=== PATIENT | female | born 1975 | race Caucasian/White ===

== ENCOUNTER 2019-11-28 15:33 | Outpatient (CLI) | payer MEDICAID, SELFPAY ==
[2019-11-30 12:21] LABS: COVID-19 RT-PCR Result Not Detected
== END 2019-11-28 15:53 ==
PROVIDERS: Visit Provider Nurse Practitioner Family
DX: J06.9 Acute upper respiratory infection, unspecified (principal)
CPT/HCPCS: U0003

== ENCOUNTER 2020-06-20 15:13 | Outpatient (REF) | payer MEDICAID, SELFPAY ==
[2020-06-24 22:44] LABS: SARS-CoV-2 RNA Undetected (Undetected); SARS-CoV-2 Specimen Source Nasal
== END 2020-06-20 15:33 ==
LOC: NCHCN 15:13
PROVIDERS: Visit Provider Family Medicine
DX: Z20.828 Contact with and (suspected) exposure to other viral communicable diseases (principal)
CPT/HCPCS: U0003

== ENCOUNTER 2020-08-13 15:43 | Outpatient (REF) | payer MEDICAID, SELFPAY ==
--- NOTE | 2020-08-13 13:50 | PAPFT_PTH ---
PATIENT: Ashely Bergman LOC: [facility]#:[id number] AGE/SX: 45/F ROOM: RE08/13/[address]: Margo Pina NP : 1975 BED: DIS: 08/13/2020 SPEC #: [id number] RECD: 08/13/20 18:24 STATUS: TRISH REVanesa #: [id number] NIDHI: 08/13/20 13:[address]: Margo Pina NP DEPT: [facility] Cytology RECD BY: Oxana Desouza ENTERED: 08/13/20 18:24 SP TYPE: PAPFT OTHR DR: Diana Payne Tissues: 1 - CX/ENDOCX FOR PAP SMEARS Procedures: PAP THIN PREP/[facility] Screening HPV DNA PROBE Comments: [id number]
== END 2020-08-13 16:03 ==
LOC: LBN 15:43
PROVIDERS: Visit Provider Nurse Practitioner Women's Health
DX: Z12.4 Encounter for screening for malignant neoplasm of cervix (principal); Z11.51 Encounter for screening for human papillomavirus (HPV)
CPT/HCPCS: 88142; 87624

== ENCOUNTER 2021-12-07 17:35 | Emergency (ER) | payer MEDICAID, SELFPAY ==
[2021-12-07 17:38] VITALS: BP 142/105; PULSE 77; RESP 18; TEMP 37.4; O2SAT 100
--- NOTE | 2021-12-07 18:00 | DI.CT_ITS ---
Exam(s) CT CHEST/ABD/PEL W EXAM: CT CHEST/ABD/PEL W CLINICAL HISTORY: thrown horse, T1/T2, R scapula, R ribs, L4 pain. TECHNIQUE: Imaging Protocol: Axial computed tomography images with coronal and sagittal reformatted images were created and reviewed CONTRAST MATERIAL: Intravenous: Omnipaque 350 Contrast volume:100 ml Oral: None COMPARISON: CT CT THORACIC LUMBAR SPINE REC from 12/07/2021 FINDINGS: CHEST: LUNGS: No evidence of lung contusion, infiltrate, pleural effusion, nor pneumothorax. No significant focal findings in the trachea and mainstem bronchi.. MEDIASTINUM: No evidence of mediastinal hematoma. No sternal fracture. No hilar nor significant med iastinal adenopathy.Visualized thyroid unremarkable. CARDIAC: Heart size is normal. There is no pericardial effusion.Thoracic aorta appears unremarkable. No evidence of trauma nor dissection. OSSEOUS: No fractures evident. There is mild subcutaneous bruising over the anterior right lower [address]. There is some mild increased density in the subcutaneous fat at this level. There is no fluid c ollection at this level.. ABDOMEN: Is no ascites and there is no evidence of bowel wall nor mesenteric hematoma. LIVER: No evidence of patent laceration or subcapsular hematoma. Mild steatosis noted. No incidenta l hepatic lesions nor dilatation of intrahepatic ducts. GALLBLADDER/BILIARY: No obvious gallbladder pathology. CBD is not dilated. PANCREAS: No evidence of pancreatic mass nor dilatation of the pancreatic duct. SPLEEN: The spleen is intact. No evidence of laceration. Normal size. Splenic and portal veins are patent. ADRENALS: There are no significant adrenal masses. KIDNEYS: No evidence of renal laceration nor subcapsular hematoma. No significant focal findings in the right kidney. Incidentally noted are nonobstructive calculi in the lower pole of the left kidney measuring up to 6 millimeters. No hydronephrosis. No hydroureter.. No renal cysts nor solid ese s. ABDOMINAL AORTA: Intact. No evidence of trauma. No significant atherosclerotic involvement. No ane urysm. Aortoiliac segments are intact. LYMPH NODES: There is no retroperitoneal nor paraaortic adenopathy. ABDOMINAL WALL: As above GI: There is no evidence of bowel obstruction.No evidence of bowel wall hematoma. PELVIS: LYMPH NODES: There is no intrapelvic nor inguinal adenopathy. GI: No evidence of appendicitis.No evidence of sigmoid diverticulitis. URINARY BLADDER: No calculi nor masses evident REPRODUCTIVE: There is an IUD in satisfactory position in the endometrial canal. There are no abnormal adnexal findings. No free fluid. OSSEOUS: No fractures. No significant osseous lesions IMPRESSION: 1. No significant trauma sequelae in the chest, abdomen, and pelvis. There is mild subcutaneous brui sing over the anterior lower right chest within subcutaneous fat. 2. There are nonobstructive calculi in the lower pole the left kidney. No other renal findings. No hydronephrosis. 3. There is an IUD in the satisfactory position in the uterus. 4. No fractures RADIATION DOSE DELIVERED: Total DLP DATA REPOSITORY: All CT scans at this facility are submitted to the National Radiology Data Registry (NRDR) Dose Index Registry (DIR) with the [employer] (ACR). RADIATION OPTIMIZATION: All CT scans at this facility use at least one of these dose optimization te chniques: automated exposure control; mA and/or kV adjustment per patient size (includes targeted exa ms where dose is matched to clinical indication); or iterative reconstruction.
--- NOTE | 2021-12-07 18:05 | DI.CT_ITS ---
Exam(s) CT HEAD CERVICAL SPINE WO EXAM: CT HEAD CERVICAL SPINE WO CLINICAL HISTORY: thrown horse, T1/T2, R scapula, R ribs, L4 pain. TECHNIQUE: Imaging Protocol: Axial computed tomography images with coronal and sagittal reformatted images were created and reviewed COMPARISON: No exams were available for comparison FINDINGS: BRAIN: There are no skull fractures nor fluid in the visualized paranasal sinuses. However, there is a mild ly expansile peripherally calcified density in the right sphenoid sinus measuring 2 by 1.5 by 1.6 cm, probably chronic retention cyst or other probable benign entity. There is no evidence of intracranial hemorrhage, mass effect, or shift of midline structures. There are no extra-axial fluid collections. The ventricles are not enlarged or shifted and there is no blo od within the ventricular system nor within the basal cisterns. There is an area of relative hypodensity in the left cerebellar hemisphere, not associated with mass upon the 4th ventricle CERVICAL SPINE: There is mild straightening of the normal lordotic curvature of the C-spine. There is no evidence of fracture nor listhesis. No significant prevertebral soft tissue swelling. There is no significant facet joint malalignment. No significant osseous lesions evident. IMPRESSION: Area of abnormal hypodensity in the left cerebellar hemisphere. This should be further studied with MRI. There is a benign-appearing but mildly expansile 2 x 1.5 x 1.6 cm either probable chronic retention c yst versus other benign mildly expansile density within the right side of the sphenoid sinuses. No evidence of cervical spine fracture, malalignment, nor acute compromise of the cervical spinal can al. Some straightening of the cervical spine is most probably related to muscle spasm. RADIATION DOSE DELIVERED: 1,344.43mGy.cm Total DLP DATA REPOSITORY: All CT scans at this facility are submitted to the National Radiology Data Registry (NRDR) Dose Index Registry (DIR) with the [employer] (ACR). RADIATION OPTIMIZATION: All CT scans at this facility use at least one of these dose optimization te chniques: automated exposure control; mA and/or kV adjustment per patient size (includes targeted exa ms where dose is matched to clinical indication); or iterative reconstruction.
--- NOTE | 2021-12-07 18:06 | DI.CT_ITS ---
Exam(s) CT THORACIC LUMBAR SPINE REC EXAM: CT THORACIC LUMBAR SPINE REC CLINICAL HISTORY: thrown horse, T1/T2, R scapula, R ribs, L4 pain TECHNIQUE: Imaging with reconstructions. COMPARISON: No exams were available for comparison FINDINGS: THORACIC SPINAL COLUMN: No evidence of compression fracture nor listhesis. No facet malalignment. N o prominent disc protrusions. LUMBOSACRAL SPINAL COLUMN: No evidence of compression fracture nor listhesis. No facet malalignment. No large disc protrusions evident. Sacral region: No sacral fractures identified. Sacroiliac joints appear unremarkable. No obvious ab normality in the sacral canal. IMPRESSION: No fractures nor listhesis nor facet malalignment within the thoracic and lumbar spinal columns. No evidence of acute compromise of the spinal canal at these levels.
--- NOTE | 2021-12-07 18:10 | ED.GENADUL_ITS ---
Discharge Plan Disposition Patient Disposition: HOME Condition: Good Discharge Details Clinical Impression: Fall from horse, Back pain Primary Care Provider: Diana Payne ED Provider: Juan Antonio Mane Home Meds and New Rx's Prescriptions: New cyclobenzaprine 10 mg tablet 10 mg PO TID Qty: 14 0RF lidocaine [Lidoderm] 1 PATCH patch 1 patch Topical Q24H Qty: 15 0RF Continued Mirena 20 mcg/24 hours (6 yrs) 52 mg intrauterine device 1 device intrauterine ONCE 0RF Rx Instructions: as a single dose Discharge Instructions Instructions: Contusion in Adults (ED), Back Pain (ED) Additional Instructions: At this time your x-rays and CAT scans showed confidence of fracture for your bones. You do have. Notable contusions to your back and your ribs.. Please take Tylenol and Motrin as needed for pain medicine. In the meantime do not lift anything greater than 5 pounds for the next 2 weeks. Avoid any significant vigorous physical activity. Perform easy gentle regular activities at home without any significant bending or lifting. You have been given a prescription for Lidoderm patch. If your insurance does not cover this you can get [id number] Lidoderm patches at 4% which are almost just as effective. Please take the Flexeril as directed but do not take it when driving or operating any vehicles or heavy machinery, swimming, taking long baths, horses edema, or operating firearms. Please use a heating pad as often as possible on your back. Perform daily gentle stretches on your back. Please continue to take the Tylenol and Motrin. You can take 1000 mg of Tylenol every 6 hours and 600 mg of ibuprofen every 6 hours. If you notice any worsening of your symptoms, or any new symptoms such as vomiting, diarrhea, fever, chills, shortness of breath, chest pain, numbness or tingling in your groin or legs, weakness in your legs, loss of control for your bowels or bladder, or fainting , please return immediately to the emergency department for reevaluation. Please follow up with your primary care provider as soon as possible for reassessment and reevaluation. As always, it was a pleasure participating in your medical care today. Additionally please follow-up closely with your primary care provider for reassessment. Please discussed the imaging findings, which they can also review from my chart. If you have any symptoms in the future of dizziness, headache, or imbalance you may require further MRI evaluation. Referrals: Diana Payne MD [Primary Care Provider] - Medical Decision Making This is a 46-year-old female with no significant past medical history who does have an intrauterine contraceptive device who presents today for evaluation of after being thrown off of a horse. Yesterday evening the patient was thrown off her horse, she was wearing her helmet, she did hit her head and did not lose consciousness. She was thrown off backwards, and landed on her back. She has had upper back pain, lower back pain, right rib pain, mild pain with breathing since that event. She denies any vomiting or diarrhea. She denies any numbness tingling or weakness. Patient denies any saddle anesthesia, numbness or tingling in the groin, change in sensation when wiping. Patient denies any bowel or bladder incontinence, leakage, or retention. Patient denies any weakness in the lower extremities, or imbalance. Patient did take Tylenol last night and this did minimally help. Current pain in those locations is made worse with movement. She denies any vision loss, headache or other complaints. No other modifying factors. She is not on any blood thinners. In the past she did have a transverse process fracture in the distant past, and states not feel as bad as that. Physical exam demonstrate tenderness over the right scapula, T1, midline, as well as L3 and L4 midline. Mild right-sided abdominal pain as well. No other abdominal pain. No other Pain. Patient was thrown due to a notable mechanism, I am concerned for pote ntial fracture, the abdominal pain is concerning for potential intra-abdominal process. Will get CT imaging, give Tylenol and Flexeril, monitor closely and reassess. 8:[address] scan results Demonstrate no evidence of acute fracture or other process. Patient feels postoperatively better after having the Flexeril to take and the Tylenol. She was able to sleep. CT head does show impressionable area of attenuation within the left cerebellar left hemisphere though. Likely artifact. Symptoms clinically show no evidence of cerebellar stroke. No current medical indication for emergent MRI However we will recommend follow-up for repeat assessment and further discussion of this disoriented. UA does show fish increase in the right he sees, but it is nitrite negative. notably dirty in the urine with moderate epithelial cells. No clinical evidence of urinary tract infection. No frequency or dysuria. We will send for cultures. Recommend close follow-up with PCP. Discussed red flags which to return. Will give Flexeril. Repeat neurologic exam shows no neurologic deficits. Patient ambulates well. She moves well. I have extensively reviewed the treatment plan and discharge instructions with the patient. I have addressed all patient concerns at this time. The patient was made aware of what symptoms to monitor for that would warrant a return to the emergency department. Discussed the plan with the patient, they demonstrate verbal understanding and agreement with our assessment and plan at this time. The documentation in this chart was dictated using [employer] dictation software. Please excuse any dictation errors. FINDINGS: Brain: There is normal sulcal prominence for a patient of this age. There is a questionable area of low attenuation within the left cerebellar hemisphere. This could be re- evaluated with an MRI examination with and without gadolinium. This could be artifactual in nature. Cerebral ventricles: The ventricular system is midline and symmetrical. It is normally dilated for a patient of this age. Paranasal sinuses: There is a mucous retention cyst within the right sphenoid sinus. Mastoid air cells: Visualized mastoid air cells are well aerated. Bones/joints: Unremarkable. No acute fracture. Soft tissues: Unremarkable. IMPRESSION: 1. Questionable area of low attenuation within the left cerebellar hemisphere. This could be reevaluated with an MRI examination with and without gadolinium if clinically warranted. This might just be artifactual in nature 2. Sinus findings as above. FINDINGS: Bones/joints: There is a reversal of the normal lordosis. The vertebral bodies maintain their height throughout. The pedicles are intact. Discs/Spinal canal/Neural foramina: There are degenerative changes at C1-C2. Thyroid: The thyroid gland is within normal limits. Prevertebral Space: There is no prevertebral soft tissue swelling. Lungs: The visualized lung apices are within normal limits. Soft tissues: Unremarkable. IMPRESSION: Reversal of the normal lordosis. Degenerative changes at C1-C2. Thank you for allowing us to participate in the care of your patient. Dictated and Authenticated by: Seth Love MD 12/07/2021 7:24 PM Eastern Time ([place] & [place]) FINDINGS: Vertebrae: Vertebral bodies maintain normal height. No acute fractures are identified. There is no spondylolisthesis. Thoracic kyphosis is maintained. Discs/Spinal canal/Neural foramina: There is multilevel slight loss of intervertebral disc height and degenerative endplate spurring throughout the midthoracic spine. There is no moderate to large disc herniation and no moderate or severe central canal stenosis. Evaluation of intraspinal soft tissue structures is limited by non-myelographic CT technique. No high-grade neural foraminal stenosis. Soft tissues: No acute or suspicious abnormality in the paravertebral soft tissues. IMPRESSION: No acute fracture or traumatic subluxation in the thoracic spine FINDINGS: Vertebrae: No acute fractures are identified. Lumbar vertebral bodies maintain normal height. Lumbar lordosis is maintained. No spondylolisthesis. Discs/Spinal canal/Neural foramina: There is no moderate to large disc herniation and no moderate or severe central canal stenosis. Evaluation of intraspinal soft tissue structures is limited by nonmyelographic CT technique. No high-grade neural foraminal stenosis. Soft tissues: No acute or suspicious abnormality in the paravertebral soft tissues. IMPRESSION: No acute fracture or traumatic subluxation in the lumbar spine. Thank you for allowing us to participate in the care of your patient. Dictated and Authenticated by: Jennifer Lazo MD 12/07/2021 7:32 PM Eastern Time ([place] & [place]) HPI General Date/Time Provider Initiated Documentation: 12/07/21 17:54 . HPI Narrative: This is a 46-year-old female with no significant past medical history who does have an intrauterine contraceptive device who presents today for evaluation of after being thrown off of a horse. Yesterday evening the patient was thrown off her horse, she was wearing her helmet, she did hit her head and did not lose consciousness. She was thrown off backwards, and landed on her back. She has had upper back pain, lower back pain, right rib pain, mild pain with breathing since that event. She denies any vomiting or diarrhea. She denies any numbness tingling or weakness. Patient denies any saddle anesthesia, numbness or tingling in the groin, change in sensation when wiping. Patient denies any bowel or bladder incontinence, leakage, or retention. Patient denies any weakness in the lower extremities, or imbalance. Patient did take Tylenol last night and this did minimally help. Current pain in those locations is made worse with movement. She denies any vision loss, headache or other complaints. No other modifying factors. She is not on any blood thinners. In the past she did have a transverse process fracture in the distant past, and states not feel as bad as that. Related Data Home Medications Medication Instructions Recorded Confirmed levonorgestrel 20 mcg/24 hours (7 1 device INTRAUTERINE ONCE 08/13/20 12/07/21 yrs) 52 mg intrauterine device (Mirena) cyclobenzaprine 10 mg tablet 10 mg PO TID #14 tab 12/07/21 lidocaine 5 % topical patch 1 patch TOPICAL Q24H #15 ea 12/07/21 (Lidoderm) Previous Rx's Medication Instructions Recorded cyclobenzaprine 10 mg tablet 10 mg PO TID #14 tab 12/07/21 lidocaine 5 % topical patch 1 patch TOPICAL Q24H #15 ea 12/07/21 (Lidoderm) Allergies Allergy/AdvReac Type Severity Reaction Status Date / Time erythromycin base AdvReac Severe vomiting Unverified 12/07/21 17:44 General Stated Complaint: Trauma HERMAN: 3 Review of Systems All systems reviewed & are unremarkable except as noted in HPI and below PFSH All Active Problems (Updated 12/07/21 @ 20:04 by Juan Antonio Mane DO) Fall from horse (Acute) Back pain (Acute) Mixed incontinence (Acute) IUD surveillance (Acute) Family History Father Alzheimer's dementia Dx early 50s Social History Smoking/Tobacco Use Status: Never Smoking risk assessment performed?: Yes Alcohol Intake: current Alcohol Intake frequency: holidays/special occasions only Substance use type: does not use Do you feel safe at home: Yes Do you feel safe in your relationship?: Yes Female Reproductive History Menstrual control method: progestin IUCD History History 2 Para 2 Hx # Term Pregnancies Multiple births Hx # Pregnancies Ectopic pregnancies AB induced Hx Number of Living Children AB spontaneous Exam Narrative Exam Narrative: 1.Const: Well-nourished, Well-developed, appearing stated age 2.Eyes: PERRL, no conjunctival injection, and symmetrical lids. 3.ENT: Atraumatic external nose and ears. Moist MM. Neck: Symmetric, trachea midline, No thyromegaly. There is no evidence of raccoon eyes, davidosn sign, CSF rhinorrhea, mastoid tenderness, cranial crepitus, hemotympanum, exophthalmos, or hyphema. Patient demonstrates intact dentition with no signs of tooth avulsion or fracture, no signs of jaw deformity, no evidence of a LeFort's fracture, with an intact palate, nose and orbital region. There is no evidence of a nasal septal hematoma. No proptosis. Jaw closes symmetrically. Airway is clear. 4.CVS: Regular rate and rhythm, Normal s1 and s2. No murmurs, carotid bruits, rubs, or gallops. Radial pulses 2+ bilaterally and symmetric. Dorsalis pedis pulses 2+ bilaterally and symmetric. 2+ capillary refill. No evidence of distant heart sounds. No extremity edema. No evidence of gross hemorrhage. 5.RESP: Airway clear, no obstructions. No abrasions or ecchymosis. Chest movement symmetric with respirations. No chest wall tenderness on palpation Trachea midline. No crepitus. No step offs. No paradoxical movements. Lungs are clear to auscultation bilaterally. No rales, rhonchi, wheezing or stridor. Breath sound symmetric. No Sucking chest wounds. No clinical evidence of significant chest trauma. 6.GI: Soft, nondistended. Mild tenderness on palpation of the right lower quadrant on the lateral aspect of the abdomen. Bowel tones normoactive. No masses or organomegaly. No ecchymosis or abrasions. No periumbilical ecchymosis or seatbelt sign. No flank or CVA tenderness. No clinical signs of significant trauma. No clinical evidence of significant abdominal trauma. 7.MSK: No gross deformities or discolorations or lesions. Tolerates full range of motion of extremities without tenderness. All compartments of upper and lower extremities are soft with no tenderness. Vascular exam demonstrates brisk capillary refill and intact pulses in all extremities. Pelvic exam demonstrates a stable pelvis, nontender to lateral compression and palpation of symphysis pubis. Patient does have tenderness over the right scapula in the mid aspect. However she also demonstrates good abduction and flexion and extension of the shoulder. No midline tenderness to palpation over the cervical spine. There is midline tenderness over T1, as well as L3 and L4. Normal ROM in flexion, extension, side bend, and rotation. Patient has +5 out of 5 strength in the lower extremities in dorsiflexion and plantarflexion, knee flexion and extension, hip flexion and extension. Normal strength for dorsiflexion and plantar flexion of the great toe bilaterally. There is +2 over 2 dorsalis pedis pulses bilaterally. There is normal sensation to the skin with light touch at the foot, knee, and hip. Normal saddle sensation. Good sensation over the deep sural nerve area bilaterally. Rectal exam demonstrates good rectal tone and good perirectal sensation. Reflexes are +2 over 4 in the patellar reflex bilaterally. +5 out of 5 strength in the medial, ulnar, radial nerve distribution bilaterally in the hands as well as intact light touch sensation to these dermatomes on the hands 8.Skin: Warm, Dry. No rashes or lesions. 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 Sensation grossly intact, no focal neurologic deficits. 10.Psych: (AAO) x3. Appropriate mood and affect Course Vital Signs Vital signs: Vital Signs Temperature 37.4 C 12/07/21 17:38 Pulse 77 12/07/21 17:38 Respiratory Rate 18 12/07/21 17:38 Blood Pressure 142/105 H 12/07/21 17:38 Pulse Oximetry 100 12/07/21 17:38 Temperature 37.4 C 12/07/21 17:38 Temperature Source Temporal Artery Scan 12/07/21 17:38 Pulse 77 12/07/21 17:38 Respiratory Rate 18 12/07/21 17:38 Respiratory Effort Non-Labored 12/07/21 18:01 Respiratory Depth Normal 12/07/21 18:01 Respiratory Pattern Normal 12/07/21 18:01 Blood Pressure 142/105 H 12/07/21 17:38 Pulse Oximetry 100 12/07/21 17:38 Oxygen Delivery Method Room Air 12/07/21 17:38 Oxygen Flow Rate 0 12/07/21 17:38 Pain Level 8 12/07/21 18:01
[2021-12-07] MEDS: Acetaminophen 500 MG TAB 1000 MG PO (18:16)
[2021-12-07] MEDS: Cyclobenzaprine 10 MG TAB PO (18:17)
[2021-12-07] MEDS: Omnipaque 350 MG/ML 100 ML BTL IJ (18:33)
[2021-12-07] MEDS: Normal Saline Flush 10 ML SYR IVP (18:35)
[2021-12-07 18:43] LABS: Bilirubin Negative (Negative); Blood Small (Negative); Clarity Clear (Clear); Glucose Negative (Negative); Ketones Negative (Negative); Leukocyte Esterase Small (Negative); Nitrite Negative (Negative); Specific Gravity >= 1.030 (1.005-1.025); Urobilinogen 0.2 EU/dL (Up TO 0.2); pH 6.5 (5-8)
[2021-12-07] MEDS: Ondansetron 4 MG/2 ML VIAL (18:45)
[2021-12-07] MEDS: MORPHine 4 MG/ML SYR IVP (18:45)
[2021-12-07 18:47] LABS: Bacteria Moderate HPF (Negative); C & S Indicated? No/Sq. Contamination; Casts Negative LPF (Negative); Crystals Few Calcium Oxalate HPF (Negative); Epithelial Cells Moderate HPF (Negative); Mucus Negative (Negative); Other Cells Few Renal (Negative); RBC Negative HPF (0-2)
[2021-12-07 19:00] VITALS: BP 165/98; PULSE 75; RESP 14; O2SAT 94
--- NOTE | 2021-12-07 19:17 | DI.VRAD_ITS ---
PROCEDURE INFORMATION: Exam: CT Chest With Contrast; Diagnostic Exam date and time: 12/07/2021 6:54 PM Age: 46 years old Clinical indication: Injury or trauma; Ruq; Blunt trauma (contusions or hematomas); Injury date: 12/06/21; Injury details: Thrown horse, t1/t2, R scapula, R ribs, l4 pain; Patient HX: Thrown from horse yesterday, t1/t2, R scapula, R ribs, l4 pain TECHNIQUE: Imaging protocol: Diagnostic computed tomography of the chest with contrast. Radiation optimization: All CT scans at this facility use at least one of these dose optimization techniques: automated exposure control; mA and/or kV adjustment per patient size (includes targeted exams where dose is matched to clinical indication); or iterative reconstruction. Contrast material: OMNIPAQUE 350; Contrast volume: 100 ml; Contrast route: INTRAVENOUS (IV); COMPARISON: CR CHEST 2 VIEWS PA,LAT 09/17/2015 9:36 AM FINDINGS: Lungs: The lungs are clear and well aerated. Pleural spaces: No pleural effusion. No pneumothorax. Heart: Heart size is normal. No pericardial effusion. Mediastinal space: No mediastinal hematoma. Lymph nodes: No pathologically enlarged mediastinal, hilar, or axillary lymph nodes. Vasculature: Normal caliber thoracic aorta and main pulmonary artery. Bones/joints: No acute fractures. There are multiple old healed right rib fractures. Thoracic vertebral bodies maintain normal height and alignment. Soft tissues: Subtle patchy infiltration of the subcutaneous fat in the anteroinferior right chest wall, a suspected soft tissue contusion. No hematoma. IMPRESSION: 1. Small superficial soft tissue contusion in the anteroinferior right chest wall. 2. Otherwise, no acute abnormality in the chest. No acute fractures. No pneumothorax. PROCEDURE INFORMATION: Exam: CT Abdomen And Pelvis With Contrast Exam date and time: 12/07/2021 6:54 PM Age: 46 years old Clinical indication: Injury or trauma; Ruq; Blunt trauma (contusions or hematomas); Injury date: 12/06/21; Injury details: Thrown horse, t1/t2, R scapula, R ribs, l4 pain; Patient HX: Thrown from horse yesterday, t1/t2, R scapula, R ribs, l4 pain TECHNIQUE: Imaging protocol: Computed tomography of the abdomen and pelvis with contrast. Radiation optimization: All CT scans at this facility use at least one of these dose optimization techniques: automated exposure control; mA and/or kV adjustment per patient size (includes targeted exams where dose is matched to clinical indication); or iterative reconstruction. Contrast material: OMNIPAQUE 350; Contrast volume: 100 ml; Contrast route: INTRAVENOUS (IV); COMPARISON: CR CHEST 2 VIEWS PA,LAT 09/17/2015 9:36 AM FINDINGS: Lungs: Visualized lung bases are clear. No pleural effusions. Liver: Mildly enlarged and diffusely diminished in attenuation compatible with moderate hepatic steatosis. No acute abnormality. Gallbladder and bile ducts: Unremarkable. No calcified gallstones. No intrahepatic or extrahepatic biliary ductal dilation. Pancreas: Unremarkable. Spleen: Unremarkable. The spleen is normal in size and enhances homogeneously. Adrenal glands: Unremarkable. Kidneys and ureters: Normal and symmetric renal enhancement. No hydronephrosis or hydroureter. 1.2 cm cortical cyst in the upper pole of the right kidney. A nonobstructing calculi in the lower pole of the right kidney, the largest measuring up to 7 mm. Stomach and bowel: The stomach is nondilated. Small and large bowel are normal in caliber. Appendix: A nondilated appendix is identified. Intraperitoneal space: Unremarkable. No ascites, fluid collection, or pneumoperitoneum. Retroperitoneal space: Unremarkable. No retroperitoneal collection or mass. Vasculature: Unremarkable. The abdominal aorta is normal in caliber. Lymph nodes: No pathologically enlarged lymph nodes. Urinary bladder: Unremarkable. Reproductive: No suspicious pelvic masses. There is an intrauterine device in place. Bones/joints: Degenerative changes. Lumbar vertebral bodies maintain normal height and alignment. No acute fractures. Soft tissues: Small faint patchy foci of infiltration in the subcutaneous fat of the abdominal wall in the lateral right upper quadrant, a suspected superficial contusion. No hematoma. Other findings: None. IMPRESSION: 1. Small superficial soft tissue contusion in the lateral right upper abdominal wall. 2. Otherwise, no acute posttraumatic abnormality in the abdomen or pelvis. No evidence of visceral injury. No acute fractures. 3. Incidental/nontraumatic findings are discussed in the body of the report. Dictated and Authenticated by: Jennifer Lazo MD. Ordering:AKIRA Romano MD
--- NOTE | 2021-12-07 19:25 | DI.VRAD_ITS ---
PROCEDURE INFORMATION: Exam: CT Head Without Contrast Exam date and time: 12/07/2021 6:30 PM Age: 46 years old Clinical indication: Injury or trauma; Other: Thrown from horse; Blunt trauma (contusions or hematomas); Consciousness not specified; Injury date: 12/06/21 TECHNIQUE: Imaging protocol: Computed tomography of the head without contrast. Radiation optimization: All CT scans at this facility use at least one of these dose optimization techniques: automated exposure control; mA and/or kV adjustment per patient size (includes targeted exams where dose is matched to clinical indication); or iterative reconstruction. COMPARISON: No relevant prior studies available. FINDINGS: Brain: There is normal sulcal prominence for a patient of this age. There is a questionable area of low attenuation within the left cerebellar hemisphere. This could be re-evaluated with an MRI examination with and without gadolinium. This could be artifactual in nature. Cerebral ventricles: The ventricular system is midline and symmetrical. It is normally dilated for a patient of this age. Paranasal sinuses: There is a mucous retention cyst within the right sphenoid sinus. Mastoid air cells: Visualized mastoid air cells are well aerated. Bones/joints: Unremarkable. No acute fracture. Soft tissues: Unremarkable. IMPRESSION: 1. Questionable area of low attenuation within the left cerebellar hemisphere. This could be re-evaluated with an MRI examination with and without gadolinium if clinically warranted. This might just be artifactual in nature. 2. Sinus findings as above. PROCEDURE INFORMATION: Exam: CT Cervical Spine Without Contrast Exam date and time: 12/07/2021 6:30 PM Age: 46 years old Clinical indication: Injury or trauma; Other: Thrown from horse; Blunt trauma (contusions or hematomas); Consciousness not specified; Injury date: 12/06/21 TECHNIQUE: Imaging protocol: Computed tomography images of the cervical spine without contrast. Radiation optimization: All CT scans at this facility use at least one of these dose optimization techniques: automated exposure control; mA and/or kV adjustment per patient size (includes targeted exams where dose is matched to clinical indication); or iterative reconstruction. COMPARISON: No relevant prior studies available. FINDINGS: Bones/joints: There is a reversal of the normal lordosis. The vertebral bodies maintain their height throughout. The pedicles are intact. Discs/Spinal canal/Neural foramina: There are degenerative changes at C1-C2. Thyroid: The thyroid gland is within normal limits. Prevertebral Space: There is no prevertebral soft tissue swelling. Lungs: The visualized lung apices are within normal limits. Soft tissues: Unremarkable. IMPRESSION: Reversal of the normal lordosis. Degenerative changes at C1-C2. Dictated and Authenticated by: Seth Love MD. Ordering:AKIRA Romano MD
--- NOTE | 2021-12-07 19:32 | DI.VRAD_ITS ---
PROCEDURE INFORMATION: Exam: CT Thoracic Spine Without Contrast Exam date and time: 12/07/2021 6:54 PM Age: 46 years old Clinical indication: Injury or trauma; Other: Thrown from horse; Blunt trauma (contusions or hematomas); Injury date: 12/06/21; Injury details: Thrown horse, t1/t2, R scapula, R ribs, l4 pain; Patient HX: Back pain radiating to mid upper back; Additional info: HX of spinus process FX TECHNIQUE: Imaging protocol: Computed tomography images of the thoracic spine without contrast. Radiation optimization: All CT scans at this facility use at least one of these dose optimization techniques: automated exposure control; mA and/or kV adjustment per patient size (includes targeted exams where dose is matched to clinical indication); or iterative reconstruction. COMPARISON: CT HEAD CERVICAL SPINE WO 12/07/2021 6:30 PM FINDINGS: Vertebrae: Vertebral bodies maintain normal height. No acute fractures are identified. There is no spondylolisthesis. Thoracic kyphosis is maintained. Discs/Spinal canal/Neural foramina: There is multilevel slight loss of intervertebral disc height and degenerative endplate spurring throughout the midthoracic spine. There is no moderate to large disc herniation and no moderate or severe central canal stenosis. Evaluation of intraspinal soft tissue structures is limited by non-myelographic CT technique. No high-grade neural foraminal stenosis. Soft tissues: No acute or suspicious abnormality in the paravertebral soft tissues. IMPRESSION: No acute fracture or traumatic subluxation in the thoracic spine. PROCEDURE INFORMATION: Exam: CT Lumbar Spine Without Contrast Exam date and time: 12/07/2021 6:54 PM Age: 46 years old Clinical indication: Injury or trauma; Other: Thrown from horse; Blunt trauma (contusions or hematomas); Injury date: 12/06/21; Injury details: Thrown horse, t1/t2, R scapula, R ribs, l4 pain; Patient HX: Back pain radiating to mid upper back; Additional info: HX of spinus process FX TECHNIQUE: Imaging protocol: Computed tomography images of the lumbar spine without contrast. Radiation optimization: All CT scans at this facility use at least one of these dose optimization techniques: automated exposure control; mA and/or kV adjustment per patient size (includes targeted exams where dose is matched to clinical indication); or iterative reconstruction. COMPARISON: No relevant prior studies for comparison. FINDINGS: Vertebrae: No acute fractures are identified. Lumbar vertebral bodies maintain normal height. Lumbar lordosis is maintained. No spondylolisthesis. Discs/Spinal canal/Neural foramina: There is no moderate to large disc herniation and no moderate or severe central canal stenosis. Evaluation of intraspinal soft tissue structures is limited by non-myelographic CT technique. No high-grade neural foraminal stenosis. Soft tissues: No acute or suspicious abnormality in the paravertebral soft tissues. IMPRESSION: No acute fracture or traumatic subluxation in the lumbar spine. Dictated and Authenticated by: Jennifer Lazo MD. Ordering:AKIRA Romano MD
[2021-12-07 20:05] VITALS: BP 147/82; PULSE 75; RESP 14; O2SAT 98
== END 2021-12-07 20:19 | disposition home or self-care (01) ==
PROVIDERS: Emergency Provider Student in an Organized Health Care Education/Training Program; PCP Family Medicine
DX: M54.50 Low back pain, unspecified (principal); S20.211A Contusion of right front wall of thorax, initial encounter; S09.8XXA Other specified injuries of head, initial encounter; M54.89 Other dorsalgia; V80.010A Animal-rider injured by fall from or being thrown from horse in noncollision accident, initial encounter
CPT/HCPCS: 74177; 81025; 99285; 70450; 71260; 72125; 81003; 81015; 99284; J2270; J2405; J3490

== ENCOUNTER 2023-02-15 19:36 | Emergency (ER) | payer MEDICAID, SELFPAY ==
[2023-02-15] VITALS (14 sets, daily range): BP systolic 141–152; BP diastolic 90–97; PULSE 63–88; RESP 13–20; TEMP 37; O2SAT 91–100
--- NOTE | 2023-02-15 19:30 | RT.EKG_ITS ---
APPROVED REPORT Exam: Resting ECG Reason for Exam: elevated blood pressure Patient Location: E HR:72 bpm ECG Measurements Heart Rate 72 AXIS MT 174 P 25 QRSd 86 QRS 12 QT 380 T 58 QTc 418 Conclusion Sinus rhythm...normal P axis, V-rate 60- 99
--- NOTE | 2023-02-15 19:56 | ED.GENADUL_ITS ---
Discharge Plan Disposition Patient Disposition: Home Condition: Stable Discharge Details Clinical Impression: Palpitations, Anxiety Primary Care Provider: Jacque Moreno ED Provider: Yonathan Pina Home Meds and New Rx's Prescriptions: New lorazepam 1 mg tablet 1 mg PO TID PRNQty: 12 0RF Continued Mirena 20 mcg/24 hours (6 yrs) 52 mg intrauterine device 1 device intrauterine ONCE Rx Instructions: as a single dose cyclobenzaprine 10 mg tablet 10 mg PO TID Qty: 14 0RF lidocaine [Lidoderm] 1 PATCH patch 1 patch Topical Q24H Qty: 15 0RF Discharge Instructions Instructions: Heart Palpitations (ED), Anxiety (ED) Additional Instructions: your blood work and ekg did not show concerning findings at this time follow up with your primary care provider within 1-2 weeks if you feel more ill, have severe pain or difficulty breathing return to the emergency department Medical Decision Making 48 yo female with no significant pmhx comes in with complaints of feeling her heart fluttering for a month intermittently and also feeling anxious and having trouble sleeping. She denies dyspnea, fevers, chills, denies chest pain states that when she feels the fluttering it's not painful and has no pressure like sensation. She denies any smoking history, no alcohol or drug use. She arrives stable speaking in full sentences and does appear anxious. She has clear lungs, no murmurs, no leg swelling or calf tenderness. I suspect her symptoms are primarily due to anxiety but will proceed with ekg/troponin, cbc, cmp, and give 1mg ativan and reassess. No tachycardia or hypoxia so doubt PE. NO tearing back pain to suggest dissection. Clear lungs and no pleuritic chest pain so doubt ptx and do not feel xray indicated. labs without significant abnormalities, she feels much better and appears less anxious. Given reassuring workup and symptoms for a month do not feel delta troponin indicated. She is stable for d/c, will provide short course of lorazepam to use as needed until she f/u's up with her pcp, return precautions given Differential Diagnosis Differential Diagnosis: anxiety, anemia, electrolyte abnormality ECG Data Attestation: I personally reviewed and interpreted this ECG (s) as follows: Prior ECG tracings: not available for review Interpretation: sinus rate of 72 pr 174 no acute ischemic findings HPI General Mode of arrival: ambulatory . Date/Time Provider Initiated Documentation: 02/15/23 19:36 . Limitations to Documentation: no limitations . Information obtained by: patient . History of Present Illness 48 year old F presents to the emergency department with the chief complaint of palpitations/anxiety, described as moderate, Patient started experiencing this month(s) (1) and it has been intermittent. No relieving factors improve symptom(s), No exacerbating factors reported . Patient did receive the following treatments prior to arrival, none Related Data Home Medications Medication Instructions Recorded Confirmed levonorgestrel 21 mcg/24 hours (8 1 device intrauterine ONCE 08/13/20 12/15/21 yrs) 52 mg intrauterine device (Mirena) cyclobenzaprine 10 mg tablet 10 mg PO TID #14 tabs 12/07/21 12/15/21 lidocaine 5 % topical patch 1 patch topical Q24H #15 ea 12/07/21 12/15/21 (Lidoderm) lorazepam 1 mg tablet 1 mg PO TID PRN #12 tabs 02/15/23 Previous Rx's Medication Instructions Recorded cyclobenzaprine 10 mg tablet 10 mg PO TID #14 tabs 12/07/21 lidocaine 5 % topical patch 1 patch topical Q24H #15 ea 12/07/21 (Lidoderm) lorazepam 1 mg tablet 1 mg PO TID PRN #12 tabs 02/15/23 Allergies Allergy/AdvReac Type Severity Reaction Status Date / Time erythromycin base AdvReac Severe vomiting Verified 12/15/21 14:42 General Stated Complaint: Anxiety HERMAN: 3 Review of Systems All systems reviewed & are unremarkable except as noted in HPI and below Constitutional Constitutional: Denies chills, Denies fever(s) and Denies weakness Cardiovascular Cardiovascular: Denies dyspnea Respiratory Respiratory: Denies cough and Denies dyspnea Gastrointestinal Gastrointestinal: Denies abdominal pain, Denies nausea and Denies vomiting Integumentary/Breasts Skin/Breast: Denies rash Neurologic Neurologic: Denies weakness PFSH All Active Problems (Updated 02/15/23 @ 21:39 by Yonathan Pina MD) Palpitations (Acute) Anxiety (Chronic) Mixed incontinence (Acute) IUD surveillance (Acute) Family History Father Alzheimer's dementia Dx early 50s Social History (Reviewed 12/07/21 @ 18:22 by TANISHA Armendariz Smoking/Tobacco Use Status: Never Smoking risk assessment performed?: Yes Alcohol Intake: current Alcohol Intake frequency: holidays/special occasions only Substance use type: does not use Do you feel safe at home: Yes Do you feel safe in your relationship?: Yes Female Reproductive History Menstrual control method: progestin IUCD History History 2 Para 2 Hx # Term Pregnancies Multiple births Hx # Pregnancies Ectopic pregnancies AB induced Hx Number of Living Children AB spontaneous Exam Const General: no acute distress and anxious Orientation: alert HENMT Head: normal to inspection Ears: external ears normal General nose exam: external nose normal Mouth: moist mucous membranes Eyes General: appearance normal, both eyes and all related structures Neck Neck: normal visual inspection Resp Effort & Inspection: normal respiratory effort and able to speak in complete sentences Auscultation: clear to auscultation bilaterally Cardio Jugular venous pressure: no JVD Rate: regular rate Heart Sounds: no murmurs Skin General skin exam: no rashes or lesions noted Neuro General: patient alert and patient oriented x3 Extrem General: normal to inspection, no calf tenderness and no pedal edema Psych Mental Status: mental status grossly normal Course Vital Signs Vital signs: Vital Signs Temperature 37.0 C 02/15/23 19:39 Pulse 88 02/15/23 19:39 Respiratory Rate 18 02/15/23 19:39 Blood Pressure 152/97 H 02/15/23 19:39 Pulse Oximetry 99 02/15/23 19:39 Temperature 37.0 C 02/15/23 19:39 Temperature Source Oral 02/15/23 19:39 Pulse 88 02/15/23 19:39 Respiratory Rate 18 02/15/23 19:39 Blood Pressure 152/97 H 02/15/23 19:39 Pulse Oximetry 99 02/15/23 19:39 Oxygen Delivery Method Room Air 02/15/23 19:39 Oxygen Flow Rate 0 02/15/23 19:39
[2023-02-15 20:13] LABS: Abs Immature Grans 0.04 10^3/uL (0.0-0.06); Absolute Basophil Count 0.05 10^3/uL (0.0-0.2); Absolute Eosinophil Count 0.24 10^3/uL (0.0-0.7); Absolute Lymphocyte Count 2.78 10^3/uL (1.2-3.4); Absolute Monocyte Count 0.67 10^3/uL (0.1-0.8); Absolute Neutrophil Count 6.83 10^3/uL (1.2-6.7); Basophils % 0.5; Eosinophils % 2.3; HCT 41.1 % (36.0-46.0); HGB 13.9 g/dL (11.2-15.7); Immature Grans % 0.4; Lymphocytes % 26.2; MCH 29.8 pg (27.0-33.0); MCHC 33.8 % (32.0-36.0); MCV 88 fL (80-95); MPV 9.5 fL (8.0-11.0); Monocytes % 6.3; Neutrophils % 64.3; Platelet Count 293 10^3/uL (130-400); RBC 4.67 10^6/uL (3.93-5.22); RDW 12.7 % (11.7-14.6); RDW-SD 40.7 fL; WBC 10.61 10^3/uL (4.4-10.8)
[2023-02-15 20:36] LABS: ALT 29 U/L (14-59); AST 19 U/L (15-37); Alkaline Phosphatase 70 U/L (46-116); BUN 16 mg/dL (7-18); Bilirubin, Total 0.3 mg/dL (0.2-1.0); CREATININE 1.1 mg/dL (0.55-1.02); Chloride 104 mmol/L (98-107); Estimated GFR 62.76 (mL/min/1.73m2); Glucose 96 mg/dL (74-106); Potassium 3.5 mmol/L (3.5-5.1); Sodium 141 mmol/L (136-145); Total Protein 7.6 g/dL (6.4-8.2); Troponin I < 50 ng/L (<or=60)
[2023-02-15 20:44] LABS: Magnesium 1.9 mg/dL (1.8-2.4); TSH (W/Ref FT4) 6.38 uIU/mL (0.36-3.74)
[2023-02-15 21:03] LABS: FREE T4 0.77 ng/dL (0.76-1.46)
[2023-02-15] MEDS: LORazepam 2 MG/ML VIAL 1 MG IVP (21:05)
== END 2023-02-15 21:55 | disposition home or self-care (01) ==
PROVIDERS: Emergency Provider Emergency Medicine; PCP Family Medicine
DX: R00.2 Palpitations (principal); F41.9 Anxiety disorder, unspecified
CPT/HCPCS: 80053; 93005; 99283; 83735; 84439; 84443; 84484; 85025; 93010; J2060

== ENCOUNTER → 2023-05-23 01:01 | Outpatient (CLI) | payer MEDICAID, SELFPAY ==
--- NOTE | 2023-05-23 | DI.MRI_ITS ---
Exam(s) MR BRAIN WO EXAM: MR BRAIN WO CLINICAL HISTORY: BRAIN ANOMALY,Q04.9,HEADACHES, H/O FALL OFF HORSE,F/U CT ,HYPODENSITY TECHNIQUE: Multiplanar multisequence MRI of the brain was performed. COMPARISON: CT CT HEAD CERVICAL SPINE WO from 12/07/2021 FINDINGS: VENTRICLES AND EXTRA AXIAL SPACES: Normal in size and morphology for the patient's age. MIDLINE SHIFT: None. CEREBRAL PARENCHYMA: No focus of restricted diffusion to suggest acute infarct. There is no abnormal signal seen in the left cerebellum. No space-occupying lesion identified. There are few scattered n onspecific white matter foci of hyperintensity on the FLAIR and T2 weighted images. They show no blo oming on the gradient images. HEMORRHAGE: None. BRAINSTEM/CEREBELLUM: Normal. CALVARIUM: Normal. VISUALIZED PARANASAL SINUSES/MASTOIDS:There is a 2 x 1.5 cm mass in the right sphenoid sinus. [place]OW [place]: Normal flow void. PITUITARY GLAND: Unremarkable. OTHER FINDINGS: None. IMPRESSION: 1. Normal MRI appearance of the left cerebellum. No evidence of an infarct or mass in this region. 2. Nonspecific white matter foci seen on the FLAIR and T2 weighted images. There is no evidence of h emorrhage on the gradient images. Postcontrast MRI should be considered for further evaluation. 3. 2 x 1.5 cm right sphenoid mass. This may represent a mucous retention cyst or polyp. Postcontras t MRI may aid in further evaluation. Unexpected findings DATA REPOSITORY:
== END ==
PROVIDERS: PCP Family Medicine; Visit Provider Family Medicine
DX: Q04.9 Congenital malformation of brain, unspecified (principal)
CPT/HCPCS: 70551

== ENCOUNTER 2023-06-24 08:22 | Emergency (ER) | payer MEDICAID, SELFPAY ==
[2023-06-24 08:24] VITALS: BP 166/79; PULSE 73; RESP 18; TEMP 36.3; O2SAT 100
--- NOTE | 2023-06-24 08:43 | ED.GENADUL_ITS ---
Discharge Plan Disposition Patient Disposition: Home Condition: Improving Discharge Details Chief Complaint: HeadInjury Clinical Impression: Hematoma, Head injury Primary Care Provider: Jacque Moreno ED Provider: Sky Zhu Home Meds and New Rx's Prescriptions: No Action Mirena 20 mcg/24 hours (6 yrs) 52 mg intrauterine device 1 device intrauterine ONCE Rx Instructions: as a single dose lorazepam 1 mg tablet 1 mg PO TID PRNQty: 12 0RF guanfacine 1 mg tablet 1 mg PO HS Patient Comments: TAKE ONE TABLET BY MOUTH AT BEDTIME citalopram 20 mg tablet 20 mg PO DAILY Patient Comments: TAKE ONE TABLET BY MOUTH EVERY DAY Discharge Instructions Instructions: Head Injury (ED), Hematoma (ED) Additional Instructions: Please continue with ice, ibuprofen and/or acetaminophen at home for pain and swelling. Please return to the emergency department for any worsening symptoms Medical Decision Making 48-year-old female presents after being kicked in the head by a horse, no loss of consciousness, no vomiting however slight headache and mild nausea, 6 centimeter hematoma with superficial abrasion to lateral aspect of right frontal scalp, TMs clear bilaterally tongue secretions no malocclusion no neck pain no midline spinal tenderness or back discomfort, patient is neurologically intact GCS of 15, airway breathing and circulation intact, 5-5 strength upper and lower extremities, normal speech no ataxia; given mechanism of injury will obtain CT head to assess for skull fracture versus intraparenchymal bleed however likely simple hematoma with early mild concussion. Trial of analgesia anti- inflammatory and antiemetics. Close reassessment disposition pending results and reassessment 9: 18 patient resting comfortably no acute distress. Hematoma is reducing with ice and rest. No evidence of skull fracture or intraparenchymal bleed. Patient is neurologically intact no vomiting. Home care instructions and return precautions given HPI General Date/Time Provider Initiated Documentation: 06/24/23 08:37 . HPI Narrative: 48-year-old female was kicked in the head by a horse, struck right frontal scalp, no loss of consciousness, has developed large swelling mild headache and nausea. Denies neck pain maxillofacial pain chest or abdominal trauma. No trouble breathing. No vomiting. Related Data Home Medications Medication Instructions Recorded Confirmed levonorgestrel 21 mcg/24 hours (8 1 device intrauterine ONCE 01/06/21 11/17/23 yrs) 52 mg intrauterine device (Mirena) lorazepam 1 mg tablet 1 mg PO TID PRN #12 tabs 02/15/23 06/24/23 citalopram 20 mg tablet 20 mg PO DAILY 06/24/23 06/24/23 guanfacine 1 mg tablet 1 mg PO HS 06/24/23 06/24/23 Previous Rx's Medication Instructions Recorded lorazepam 1 mg tablet 1 mg PO TID PRN #12 tabs 02/15/23 Allergies Allergy/AdvReac Type Severity Reaction Status Date / Time erythromycin base AdvReac Severe vomiting Verified 06/24/23 08:26 General Stated Complaint: HeadInjury HERMAN: 3 Review of Systems Narrative: Review of Systems Constitutional: negative Eyes: negative ENT: Head injury Cardiovascular: negative Respiratory: negative Gastrointestinal: negative : negative Musculoskeletal: negative Skin: negative Neurologic: negative Psych: negative PFSH All Active Problems (Updated 06/24/23 @ 09:19 by Sky Zhu MD) Head injury (Acute) Hematoma (Acute) Mixed incontinence (Acute) IUD surveillance (Acute) Family History Father Alzheimer's dementia Dx early 50s Social History Smoking/Tobacco Use Status: Never Smoking risk assessment performed?: Yes Alcohol Intake: current Alcohol Intake frequency: holidays/special occasions only Substance use type: does not use Do you feel safe at home: Yes Do you feel safe in your relationship?: Yes Female Reproductive History Menstrual control method: progestin IUCD History History 2 Para 2 Hx # Term Pregnancies Multiple births Hx # Pregnancies Ectopic pregnancies AB induced Hx Number of Living Children AB spontaneous Exam Narrative Exam Narrative: Physical Examination General: alert, awake, cooperative, resting comfortably, no acute distress HEENT: normocephalic, 6 cm hematoma lateral aspect of right frontal scalp small superficial abrasion hemostatic no foreign body; PERRL, EOM intact, conjunctiva normal; no nasal discharge; moist mucous membranes, oral and pharyngeal mucosa normal, tolerating secretions; TMs clear bilaterally Neck: supple, trachea midline; full ROM Chest: normal to inspection Respiratory: normal respiratory effort, speaking in full sentences, clear to auscultation, no wheezing, rales or rhonchi Cardiac: regular rate, regular rhythm, S1S2 intact, no murmurs rubs or gallops GI: abdomen soft, non-tender, non-distended; no palpable mass or hepatosplenomegaly Back: No midline spinal tenderness step-off or deformity Skin: no lesions, rashes or trauma appreciated Neuro: AAOx3, normal speech, moving all extremities; cranial nerves II through XII intact out of 5 strength upper and lower extremities, ambulatory without assistance no ataxia Extremities: No signs of trauma Psych: Appropriate mood and affect Course Vital Signs Vital signs: Vital Signs Temperature 36.3 C L 06/24/23 08:24 Pulse 73 06/24/23 08:24 Respiratory Rate 18 06/24/23 08:24 Blood Pressure 166/79 H 06/24/23 08:24 Pulse Oximetry 100 06/24/23 08:24 Temperature 36.3 C L 06/24/23 08:24 Temperature Source Skin 06/24/23 08:24 Pulse 73 06/24/23 08:24 Respiratory Rate 18 06/24/23 08:24 Respiratory Effort Normal 06/24/23 08:30 Respiratory Depth Normal 06/24/23 08:30 Respiratory Pattern Normal 06/24/23 08:30 Blood Pressure 166/79 H 06/24/23 08:24 Blood Pressure Position Sitting 06/24/23 08:24 Pulse Oximetry 100 06/24/23 08:24 Oxygen Delivery Method Room Air 06/24/23 08:24 Oxygen Flow Rate 0 06/24/23 08:24 Pain Level 5 06/24/23 08:24
--- NOTE | 2023-06-24 08:52 | DI.CT_ITS ---
Exam(s) CT HEAD WO EXAM: CT HEAD WO CLINICAL HISTORY: kicked in head by horse, r ebony. TECHNIQUE: Imaging Protocol: Axial computed tomography images with coronal and sagittal reformatted images were created and reviewed COMPARISON: CT CT HEAD CERVICAL SPINE WO from 12/07/2021 FINDINGS: There is prominent subcutaneous hematoma over the lateral right frontal region but no evidence of sub jacent facial nor skull fracture. There are no fluid levels in the paranasal sinuses but there is again noted the previously described expansile peripherally calcified density in the right sphenoid sinus measuring 2.1 by 1.6 by 1.6 cm, unchanged from previous and most probably a chronic retention cyst versus other benign slowly expandi ng process. There is no evidence of intracranial hemorrhage, mass effect, or shift of midline structures. There are no extra-axial fluid collections. The ventricles are not enlarged or shifted and there is no blo od within the ventricular system nor within the basal cisterns. IMPRESSION: No acute intracranial findings on this noninfused CT scan of the brain. Right para orbital scalp hematoma. No fracture. RADIATION DOSE DELIVERED: Total DLP DATA REPOSITORY: All CT scans at this facility are submitted to the National Radiology Data Registry (NRDR) Dose Index Registry (DIR) with the [employer] (ACR). RADIATION OPTIMIZATION: All CT scans at this facility use at least one of these dose optimization te chniques: automated exposure control; mA and/or kV adjustment per patient size (includes targeted exa ms where dose is matched to clinical indication); or iterative reconstruction.
[2023-06-24] MEDS: Acetaminophen 325 MG TAB 650 MG PO (08:54)
[2023-06-24] MEDS: Ondansetron O.D.T. 4 MG TABEF SL (08:54)
[2023-06-24 09:42] VITALS: BP 112/92; PULSE 54; RESP 16; O2SAT 100
== END 2023-06-24 09:52 | disposition home or self-care (01) ==
PROVIDERS: Emergency Provider Emergency Medicine; PCP Family Medicine
DX: S00.03XA Contusion of scalp, initial encounter (principal); S09.8XXA Other specified injuries of head, initial encounter; W55.12XA Struck by horse, initial encounter; Y93.K9 Activity, other involving animal care; Y92.89 Other specified places as the place of occurrence of the external cause
CPT/HCPCS: 99284; 70450; 99283

== ENCOUNTER 2024-08-07 15:27 | Outpatient (CLI) | payer MEDICAID, SELFPAY ==
--- NOTE | 2024-08-07 15:11 | DI.RAD_ITS ---
Exam(s) XR KNEE LT 4V AP,LAT,YOBANY,PAT EXAM: XR KNEE LT 4V AP,LAT,YOBANY,PAT CLINICAL HISTORY: PAIN LT KNEE JOINT, M25.562, KICKED BY HORSE LT KNEE MEDIAL ASPECT ON 08/04. TECHNIQUE: 2D digital imaging was performed. COMPARISON: No exams were available for comparison FINDINGS: Four views No evidence of acute fracture but there does appear to be a small joint effusion which may signify in ternal derangement. There is minimal narrowing of the medial compartment. No prominent degenerative changes. Bone density normal. No osseous lesions. On the merchant's view there is no significant narrowing of the retropatellar cartilage and no patellar offset. IMPRESSION: No acute osseous abnormalities in the left knee. However, there does appear to be a joint effusion w hich may signify internal derangement. Appropriate follow-up is recommended. DATA REPOSITORY: RADIATION DOSE DELIVERED:
--- OUTSIDE RECORDS SUMMARY | 2024-08-07 15:33 | XMS_ITS | Referral Summary ---
Author Organization [facility] Address [address] [place] [address] Care Team Providers Care Nurse Healthcare Manager Name Role Phone Katie Ratliff RUG RECEIVING CLERK Primary Care Provider [phone] Social History Tobacco Use Types Packs/Day Years Used Date Smoking Tobacco: Never Assessed Comments Unknown Sex and Gender Information Value Date Recorded Sex Assigned at Not on file Legal Sex Female 18:26 EST Gender Identity Not on file Sexual Orientation Not on file Plan of Treatment Not on file Care Teams Nurse Healthcare Manager Relationship Specialty Start Date End Date Katie Ratliff NP [address] [place] [id number] PCP - General 06/18/15
--- OUTSIDE RECORDS SUMMARY | 2024-08-07 15:33 | XMS_ITS | Clinical Summary ---
Author Organization [facility] Address [address] [place] [id number] Care Team Providers Care Computer Aide Name Role Phone Katie Ratliff NP Primary Care Provider [phone] Social History Tobacco Use Types Packs/Day Years Used Date Smoking Tobacco: Never Assessed Comments Unknown Sex and Gender Information Value Date Recorded Sex Assigned at Not on file Legal Sex Female 18:26 EST Gender Identity Not on file Sexual Orientation Not on file Plan of Treatment Health Maintenance Due Date Last Done Comments Hepatitis C Screen 1975 Hepatitis B Vaccine (1 of 3 - 19+ 3-dose series) 01/20 COVID-19 Vaccine ( season) 2024 Care Teams Computer Aide Relationship Specialty Start Date End Date Katie Ratliff NP [address] [place] [id number] PCP - General 06/18/15
--- OUTSIDE RECORDS SUMMARY | 2024-08-07 15:34 | XMS_ITS | Encounter Summary ---
Author Organization [facility] Address [address] [place] [address] Care Team Providers Care Salesforce Consultant Name Role Phone Unavailable Primary Care Provider Unavailabl e Encounter Details Date Type Department Care Team (Latest Contact Info) Description 10/07/2008 18:21 EST Hospital Encounter [facility] - Other [address] [place] [address] Germaine Rivas MD [address] [place] [address] Discharge Disposition: Home or Self Care Social History Tobacco Use Types Packs/Day Years Used Date Smoking Tobacco: Never Assessed Comments Unknown Sex and Gender Information Value Date Recorded Sex Assigned at Not on file Legal Sex Female 18:26 EST Gender Identity Not on file Sexual Orientation Not on file documented as of this encounter Discharge Disposition Disposition Code Departure Means Destination Home or Self Care documented in this encounter Plan of Treatment Not on file documented as of this encounter Procedures Procedure Name Priority Date/Time Associated Diagnosis Comments SURGICAL PATHOLOGY Routine 10/08/2008 0:00 EST documented in this encounter Results * SURGICAL PATHOLOGY (10/08/2008 0:00 EST) Pathology Report: SURGICAL PATHOLOGY REPORT ? Reports generated via electronic interface contain original data; ? however they are lacking the format of the original report. ? Caution should be taken when reading/interpreti ng unformatted reports. ? Name: ? DANIEL BERGMAN M ? Accession #: ? [id number] ? : ? 1975 (Age: 33) ??F ? Collect Date: ? 10/08/2008 ? Location: ? [facility] ? Receive Date: ? 10/08/2008 ? Provider: GERMAINE RIVAS MD ? Copy to: MEDINA L ZAYAS MACHINIST MECHANIC ? Final Pathologic Diagnosis: ? Skin of inguinal area, right, biopsy: ? - Fibroepithelial polyp (soft fibroma). ? Microscopic Description: ? Sections are of a pedunculated portion of skin. ??The epidermis is ? relatively unremarkable. ??Within the dermis, there is loose fibrous tissue with stellate fibroblasts. ??There are lobules of mature adipose tissue. ??( ? Kenny)/tmg ? Document reviewed and electronically signed by: ? Kiarra Cox MD ? Report ??Date: 10/10/2008 13:35 ? By the signature above, the attending physician certifies that he/she has ? personally conducted a gross and/or microscopic examination of the described ? specimens and rendered or confirmed the above diagnosis. ? Specimen(s) Received: ? Skin tag R inguinal area ? Clinical History: ? Skin tag R inguinal area ? Gross Description: ? Received in formalin labelled Dargie and R inguinal area is a shave ? biopsy of a sifuentes smooth to wrinkled nodule measuring 1.2 x 1.0 x 0.6 cm. ??The ? margin is inked black. ??The specimen is trisected and entirely submitted in one cassette. ??(Espinoza Pelayo)/ge ? End of Report ? [facility] 10/08/2008 10/08/2008 15: 49 EST us Germaine Rivas MD PATHOLOGY ORDERABLES Final Resul t [facility] [address] [place] [address] documented in this encounter Visit Diagnoses Not on filedocumented in this encounter
--- OUTSIDE RECORDS SUMMARY | 2024-08-07 15:34 | XMS_ITS | Encounter Summary ---
Author Organization [facility] Address [address] [place] [address] Care Team Providers Care Farm Manager Name Role Phone Unavailable Primary Care Provider Unavailabl e Encounter Details Date Type Department Care Team (Late st Contact Info) Description 12/19/2014 Results Only [facility] [phone] Tatum Colunga, [address] [place] [address] Social History Tobacco Use Types Packs/Day Years Used Date Smoking Tobacco: Never Assessed Comments Unknown Sex and Gender Information Value Date Recorded Sex Assigned at Not on file Legal Sex Female 18:26 EST Gender Identity Not on file Sexual Orientation Not on file documented as of this encounter Plan of Treatment Not on file documented as of this encounter Procedures Procedure Name Priority Date/Time Associated Diagnosis Comments PAP TEST- RESULT ONLY Routine 12/19/2014 0:00 EDT documented in this encounter Results * PAP TEST- RESULT ONLY (12/19/2014 0:00 EDT) Pathology Report: CYTOPATHOLOGY REPORT Reports generated via electronic interface contain original data; however they are lacking the format of the original report. Caution should be taken when reading/interpreti ng unformatted reports. Name: ? DANIEL BERGMAN ? Accession #: ? [id number] ? : ? 1975 (Age: 39) ??F ?Collect Date: ? 12/19/2014 ? Location: ? [facility] ? Receive Date: ? 12/20/2014 ? Provider: TATUM COLUNGA CO CHAIRMAN Copy to: MEDINA ZAYAS MALT HOUSE OPERATOR ? Final Report SPECIMEN ADEQUACY ? Satisfactory for Evaluation - transformation zone component present - scant squamous epithelial component secondary to excessive blood GENERAL CATEGORIZATION ? Negative for Intraepithelial Lesion or Malignancy ?? Last Menstrual Period: 12/06/2014 Hormonal/Contracep tive status: Intrauterine device: Paraguard Specimen/Source: ??Pap Test, Cervix/Endocervix, ThinPrep Imaging System with manual evaluation Document reviewed and electronically signed by: ? Pau Ndiaye, NEWTON(ASCP) ? Report ??Date: 12/31/2014 09:58 HPV with Pap Test ? Date Ordered: ? 12/31/2014 ? Status: ?? Signed Out ?Date Complete: ? 01/02/2015 ? By: ??System Interface ? Date Reported: ? 01/02/2015 ? Interpretation RESULT: Negative for HPV. No E6 or E7 mRNA is detected from HPV types 16,18,31,33,35, 39,45,51,52,56,58, 59,66, and 68 by contract design agent mediated amplification. Comments Document reviewed and electronically signed by: ? System Interface ? Report date: 01/02/2015 By the signature above, the attending physician certifies that he/she has personally conducted a gross and/or microscopic examination of the described specimens and rendered or confirmed the above diagnosis. End of Report [facility] 12/19/2014 12/20/2014 us Tatum Colunga CO CHAIRMAN PATHOLOGY ORDERABLES Final R esult [facility] [address] [place] [address] documented in this encounter Visit Diagnoses Not on filedocumented in this encounter
--- OUTSIDE RECORDS SUMMARY | 2024-08-07 15:34 | XMS_ITS | Encounter Summary ---
Author Organization [facility] Address [address] [place] [address] Care Team Providers Care Sharepoint Specialist Name Role Phone Unavailable Primary Care Provider Unavailabl e Encounter Details Date Type Department Care Team (Late st Contact Info) Description 10/04/2003 Results Only [facility] - [facility] [address] [place] [address] Tatum Colunga, [facility] [address] [place] [address] [place] [address] Social History Tobacco Use Types [...] Procedure Name Priority Date/Time Associated Diagnosis Comments CYTOPATHOLOGY Routine 10/04/2003 0:00 EST documented in this encounter Results * CYTOPATHOLOGY (10/04/2003 0:00 EST) Pathology Report: CYTOPATHOLOGY REPORT Reports generated via electronic interface contain original data; however they are lacking the format of the original report. Caution should be taken when reading/interpreti ng unformatted reports. Name: ? DANIEL BERGMAN ? Accession #: ? [id number] : ? 1975 (Age: 28) ??F ?Collect Date: ? 10/04/2003 Location: ? [facility] ? Receive Date: ? 10/07/2003 Provider: ?TATUM COLUNGA TRANSPORTATION DESIGN ENGINEER Copy to: ? Specimen/Source: ?ThinPrep Pap Test, Cervix/Endocervix Last Menstrual Period: ? 09/27/03 Previous Gynecologic Pathology: ? ASC-US: 10/06 HPV: + 07/09 Treatment History: ? Colposcopy: 09/09 normal Other: ? Additional clinical information: 08/17/01 & 05/09 paps neg. HPVA - HPV testing requested if ASC-US on the current ThinPrep Pap test. ? SPECIMEN ADEQUACY ? Satisfactory for Evaluation - transformation zone component present GENERAL CATEGORIZATION ? Negative for Intraepithelial Lesion or Malignancy ? Document reviewed and electronically signed by: ? ROMAN Patino(ASCP) ? Report Date: ??10/10/2003 09:44 End of Report [facility] 10/04/2003 10/07/2003 us Tatum Colunga TRANSPORTATION DESIGN ENGINEER PATHOLOGY ORDERABLES Final R esult [facility] [address] [place] [address] documented in this encounter Visit Diagnoses Not on filedocumented in this encounter
--- OUTSIDE RECORDS SUMMARY | 2024-08-07 15:34 | XMS_ITS | Encounter Summary ---
Author Organization [facility] Address [address] [place] [address] Care Team Providers Care Porcelain Enamel Sprayer Name Role Phone Unavailable Primary Care Provider Unavailabl e Encounter Details Date Type Department Care Team (Late st Contact Info) Description 08/17/2001 8:55 EST Hospital Encounter [facility] - Other [address] [place] [address] [address] [place], [place] [id number] Unknown, Provider, Social History Tobacco Use Types Packs/Day Years [...] Procedure Name Priority Date/Time Associated Diagnosis Comments HPV DETECTION, HIGH RISK TYPES Routine 08/17/2001 15:30 EST CYTOPATHOLOGY Routine 08/17/2001 0:00 EST documented in this encounter Results * HUMAN PAPILLOMA VIRUS DNA TEST (08/17/2001 15:30 EST) Specimen Description Cervix, ThinPrep vial [facility] Result Positive for one or more of HPV types 16,18,31,33,35 ,39,45,51,52,5 6,58,59, or 68. These high/intermedi ate risk HPV types are associated with dysplasia and some cervical cancers. [facility] Report Status Final [id number] [facility] 08/17/2001 15:3 0 EST 08/23/2001 8:29 EST Neil Morales CNJesus MICROBIOLOGY - GENERAL ORDERABLE S Final Result [facility] [address] [place] [address] * CYTOPATHOLOGY (08/17/2001 0:00 EST) Pathology Report: CYTOPATHOLOGY REPORT Reports generated via electronic interface contain original data; however they are lacking the format of the original report. Caution should be taken when reading/interpreti ng unformatted reports. Name: ? DANIEL BERGMAN ? Accession #: ? [id number] : ? 1975 (Age: 26) ??F ?Collect Date: ? 08/17/2001 Location: ? [facility] ? Receive Date: ? 08/21/2001 Provider: ?NEIL MORALES CNM Copy to: ? Specimen/Source: ?ThinPrep Pap Test, Cervix/Endocervix Last Menstrual Period: ? 09/05/00 Menstrual/Pregnanc y Status: ? Post Previous Gynecologic Pathology: ? HPV ASC-US Treatment History: ? Colposcopy Other: ? HPVDX - HPV testing requested regardless of diagnosis on current ThinPrep Pap test. ? SPECIMEN ADEQUACY ? Satisfactory for Evaluation - transformation zone component present GENERAL CATEGORIZATION ? Negative for Intraepithelial Lesion or Malignancy ? Document reviewed and electronically signed by: ? NEWTON Balderrama(ASCP) ? Report Date: ??08/22/2001 16:24 End of Report [facility] 08/17/2001 08/21/2001 us Neil Morales CNM PATHOLOGY ORDERABLES Final Resul t [facility] [address] [place] [address] documented in this encounter Visit Diagnoses Not on filedocumented in this encounter
--- OUTSIDE RECORDS SUMMARY | 2024-08-07 15:34 | XMS_ITS | Encounter Summary ---
Author Organization [facility] Address [address] [place] [address] Care Team Providers Care Manager Agriculture Name Role Phone GaudencioKatie PROPULSION SYSTEMS ENGINEER Primary Care Provider [phone] Encounter Details Date Type Department Care Team (Late st Contact Info) Description 08/14/2020 Lab Requisition [facility] Pathology & Laboratory Medicine - [address] [address] Margo Pina, MEAL COOKER [address] [place] [address] Encounter for other general examination Social History Tobacco Use Types Packs/Day Years [...] Name Priority Date/Time Associated Diagnosis Comments PAP TEST Today 08/13/2020 13:50 EST Encounter for other general examination HPV DNA DETECTION WITH GENOTYPING, PCR Today 08/13/2020 13:50 EST Encounter for other general examination documented in this encounter Results * HUMAN PAPILLOMAVIRUS (HPV) DETECTION-HIGH RISK TYPES (08/13/2020 13:50 EST) HPV other High Risk types, PCR Negative Negative 08/26/2020 14:06 EST [facility] Comment:No E6 or E7 mRNA is detected from HPV types 16,18,31,33,35,39,45,51,52,56,58,59,66, and 68 by electronic sales and service technician mediated amplification. Papanicolaou smear specimen (specimen) CERVIX UTERI STRUCTURE / Unknown 08/13/2020 13:50 EST 08/22/2020 12:02 EST us Margo A Silvana MEAL COOKER MICROBIOLOGY - GENERAL OR DERABLES Final Result [facility] [address] [place] [address] * PAP TEST (08/13/2020 13:50 EST) Specimens A. Cervix and/or Endocervix , ThinPrep Imaging System with Manual Evaluation 08/26/2020 14:06 [facility] Specimen Adequacy Satisfactory for Evaluation - transformation zone component present 08/26/2020 14:06 [facility] General Categorization Negative for intraepithelial lesion or malignancy 08/26/2020 14:06 [facility] Descriptive Diagnosis Reactive cellular changes associated with inflammation present (includes repair). 08/26/2020 14:06 [facility] Attestation By the signature below, the attending physician certifies that they have personally conducted a gross and/or microscopic examination of the described specimens and rendered or confirmed the above diagnosis. 08/26/2020 14:06 [facility] at 1406 Clinical History See below 08/26/19 14:06 [facility] HPV The result for the Human Papillomavirus (HPV) Detection-High Risk Types is Negative. No E6 or E7 mRNA is detected from HPV types 16,18,31,33,35,39 ,45,51,52,56,58,5 9,66, and 68 by electronic sales and service technician mediated amplification.Ivonne ting was performed on specimen [id number] and was resulted on 08/26/2020 1401 EST by MAXI, LAB INSTRUMENT RESULTS IN 08/26/2020 14:06 [facility] Performing Lab [facility] 08/26/2020 14:06 [facility] Scanned Images 08/26/2020 14:06 EST [facility] Papanicolaou smear specimen (specimen) CERVIX UTERI STRUCTURE / Unknown 08/13/2020 13:50 EST 08/14/2020 11:47 EST us Margo Pina APRN PATHOLOGY ORDERABLES Stacy tolbert Result [facility] [address] [place] [address] documented in this encounter Visit Diagnoses Diagnosis Encounter for other general examination documented in this encounter Care Teams Manager Agriculture Relationship Specialty Start Date End Date Katie Ratliff NP [address] [place] [address] PCP - General 06/18/15 documented as of this encounter
--- OUTSIDE RECORDS SUMMARY | 2024-08-07 15:34 | XMS_ITS | Encounter Summary ---
Author Organization [facility] Address [address] [place] [address] Care Team Providers Care Community Liaison Officer Name Role Phone Unavailable Primary Care Provider Unavailabl e Encounter Details Date Type Department Care Team (Late st Contact Info) Description 06/05/2002 Results Only [facility] - Maple conversion [address] [place] [address] Tatum Colunga, [facility] [address] [place] [address] [place] [address] Social History Tobacco Use Types [...] Priority Date/Time Associated Diagnosis Comments CYTOPATHOLOGY Routine 06/05/2002 0:00 EST documented in this encounter Results * CYTOPATHOLOGY (06/05/2002 0:00 EST) Pathology Report: CYTOPATHOLOGY REPORT Reports generated via electronic interface contain original data; however they are lacking the format of the original report. Caution should be taken when reading/interpreti ng unformatted reports. Name: ? DANIEL BERGMAN ? Accession #: ? [id number] : ? 1975 (Age: 27) ??F ?Collect Date: ? 06/05/2002 Location: ? [facility] ? Receive Date: ? 06/07/2002 Provider: ?TATUM COLUNGA WATERPROOFER HELPER Copy to: ? Specimen/Source: ?ThinPrep Pap Test, Cervix/Endocervix Last Menstrual Period: ? Hormonal/Contracep tive Status: ? Depo-Provera Previous Gynecologic Pathology: ? ASC-US HPV Treatment History: ? Colposcopy: Normal, Pap of 08/17/01 Neg. ? SPECIMEN ADEQUACY ? Satisfactory for Evaluation - transformation zone component present GENERAL CATEGORIZATION ? Negative for Intraepithelial Lesion or Malignancy ? Document reviewed and electronically signed by: ? Fauzia Shelton, CT(ASCP)(IAC) ? Report Date: ??06/12/2002 10:41 End of Report [facility] 06/05/2002 06/07/2002 Tatum Colunga WATERPROOFER HELPER PATHOLOGY ORDERABLES Final R esult [facility] [address] [place] [address] documented in this encounter Visit Diagnoses Not on filedocumented in this encounter
--- OUTSIDE RECORDS SUMMARY | 2024-08-07 15:34 | XMS_ITS | Encounter Summary ---
Author Organization [facility] Address [address] [place] [address] Care Team Providers Care Manager Applied Name Role Phone Unavailable Primary Care Provider Unavailabl e Encounter Details Date Type Department Care Team (Late st Contact Info) Description 09/09/2008 Before PRISM Converted Visit (Maple) [facility] - Maple conversion [address] [place] [address] [facility] [address] [place] [address] [place] [address] Social History Tobacco Use Types [...] Comments HPV DETECTION, HIGH RISK TYPES Routine 09/09/2008 11:30 EST CYTOPATHOLOGY Routine 09/09/2008 0:00 EST documented in this encounter Results * HUMAN PAPILLOMA VIRUS DNA TEST (09/09/2008 11:30 EST) Specimen Description Cervix, ThinPrep vial [facility] Result Negative for HPV types 16, 18, 31, 33, 35, 39, 45, 51, 52, 56, 58, 59, and 68. [facility] Report Status Final 09/24/2008 [facility] 09/09/2008 11:3 0 EST 09/18/2008 10:50 EST us Tatum Colunga VEIN ACCESS TECHNICIAN MICROBIOLOGY - GENERAL ORDER ARLETH Final Result [facility] [address] [place] [address] * CYTOPATHOLOGY (09/09/2008 0:00 EST) Pathology Report: CYTOPATHOLOGY REPORT ? Reports generated via electronic interface contain original data; ? however they are lacking the format of the original report. ? Caution should be taken when reading/interpreti ng unformatted reports. ? Name: ? DANIEL BERGMAN ? Accession #: ? [id number] ? : ? 1975 (Age: 33) ??F ?Collect Date: ? 09/09/2008 ? Location: ? [facility] ? Receive Date: ? 09/10/2008 ? Provider: ?TATUM VAUGHN VEIN ACCESS TECHNICIAN ? Copy to: ? Specimen/Source: ?Pap Test, Cervix/Endocervix, ThinPrep Imaging System ? with manual evaluation ? Last Menstrual Period: ? 01/07/09 ? Hormonal/Contracep tive Status: ? Intrauterine device: pt. has Paragard ? Previous Gynecologic Pathology: ? ASC-US: 11/02/ ? HPV: + //, // & / ? Treatment History: ? Colposcopy: normal ? Other: ? Additional clinical information: //, 12/02, 04, 05 & 07 paps neg. ? HPVDX - HPV testing requested regardless of diagnosis on current ThinPrep Pap ?? test. ? SPECIMEN ADEQUACY ? Satisfactory for Evaluation ? - transformation zone component present ? - scant squamous epithelial component secondary to excessive blood ? GENERAL CATEGORIZATION ? Negative for Intraepithelial Lesion or Malignancy ? INTERPRETATION ? Reactive cellular changes associated with inflammation present (includes ?? repair). ? Document reviewed and electronically signed by: ? Adrianna L. Correa, MD ? Report Date: ??09/17/2008 15:08 ? End of Report ? [facility] 09/09/2008 09/10/2008 Tatum Colunga VEIN ACCESS TECHNICIAN PATHOLOGY ORDERABLES Final R esult Performing Organization Address City/State/[facility] Co de Phone Number [facility] [address] [place] [address] documented in this encounter Visit Diagnoses Not on filedocumented in this encounter
--- OUTSIDE RECORDS SUMMARY | 2024-08-07 15:34 | XMS_ITS | Encounter Summary ---
Author Organization [facility] Address [address] [place] [address] Care Team Providers Care Brim Buster Name Role Phone Katie Ratliff LONG FILLER CIGAR ROLLER MACHINE Primary Care Provider [phone] Encounter Details Date Type Department Care Team (Late st Contact Info) Description 11/28/2019 Lab Requisition [facility] Pathology & Laboratory Medicine - [address] [address] Unknown, Provider, Social History Tobacco Use Types [...] Procedure Name Priority Date/Time Associated Diagnosis Comments DO NOT ORDER STANDALONE - PABLO COVID TESTING Today 11/28/2019 13:00 EDT COVID-19 TESTING Routine 11/28/2019 13:0 0 EDT documented in this encounter Results * DO NOT ORDER STANDALONE - PABLO COVID TESTING (11/28/2019 13:00 EDT) COVID-19 rt-PCR Result Not Detected 11/29/2019 19:53 EDT [facility] Comment:This test has not be en FDA cleared or approved. This test has been authorized by FDA under an EUA for use by authorized laboratories. This test has been authorized only for the detection of nucleic acid from SARS-CoV-2, not for any other viruses or pathogens. This test is only authorized for the duration of the declaration that circumstances exist justifying the authorization of emergency use of in vitro diagnostic tests for detection and/or diagnosis of COVID-19 under Section 564(b)(1) of the Act, 21 U.S.C. ?? 360bbb-3(b)(1), unless the authorization is terminated or revoked sooner. Factsheets for healthcare providers: https://www.fda.gov/media/416043/download Factsheets for patients: https://www.fda.gov/media/269328/download Swab ENTIRE NASOPHARYNX / Unknown 11/28/2019 13:00 EDT 11/28/2019 20:32 EDT us Provider Unknown MD MICROBIOLOGY - GENERAL ORDER ARLETH Final Result [facility] [address] [place] [address] * COVID-19 TESTING (11/28/2019 13:00 EDT) COVID-19 rt-PCR Result Not Detected 11/29/2019 20:06 EDT [facility] Comment:This test has not be en FDA cleared or approved. This test has been authorized by FDA under an EUA for use by authorized laboratories. This test has been authorized only for the detection of nucleic acid from SARS-CoV-2, not for any other viruses or pathogens. This test is only authorized for the duration of the declaration that circumstances exist justifying the authorization of emergency use of in vitro diagnostic tests for detection and/or diagnosis of COVID-19 under Section 564(b)(1) of the Act, 21 U.S.C. ?? 360bbb-3(b)(1), unless the authorization is terminated or revoked sooner. Factsheets for healthcare providers: https://www.fda.gov/media/280791/download Factsheets for patients: https://www.fda.gov/media/934550/download Performing Lab [facility] 11/29/2019 20:06 EDT [facility] Swab ENTIRE NASOPHARYNX / Unknown 11/28/2019 13:00 EDT 11/28/2019 20:32 EDT us Provider Unknown MICROBIOLOGY - GENERAL ORDER ARLETH Final Result [facility] [address] LABORATORY [address] [place] [address] documented in this encounter Visit Diagnoses Not on filedocumented in this encounter Care Teams Brim Buster Relationship Specialty Start Date End Date Katie Ratliff, [facility]OOK [address] [place] [address] PCP - General 06/18/15 documented as of this encounter
--- OUTSIDE RECORDS SUMMARY | 2024-08-07 15:34 | XMS_ITS | Encounter Summary ---
Author Organization [facility] Address [address] [place] [address] Care Team Providers Care Manager Change Name Role Phone Unavailable Primary Care Provider Unavailabl e Encounter Details Date Type Department Care Team (Late st Contact Info) Description 11/02/2000 11:28 EST Hospital Encounter [facility] - Other [address] [place] [address] [address] [place] [id number] Unknown, Provider, Social History Tobacco Use Types [...] Comments HPV DETECTION, HIGH RISK TYPES Routine 11/02/2000 14:00 EST CYTOPATHOLOGY Routine 11/02/2000 0:00 EST documented in this encounter Results * HUMAN PAPILLOMA VIRUS DNA TEST (11/02/2000 14:00 EST) Specimen Description Cervix, ThinPrep vial [facility] Result Positive for one or more of HPV types 16,18,31,33,35 ,39,45,51,52,5 6,58,59, or 68. These high/intermedi ate risk HPV types are associated with dysplasia and some cervical cancers. Positive for one or more of HPV types 6,11,42,43, or 44. These low riskHPV types are usually associated with benign conditions. [facility] Report Status Final [id number] [facility] 11/02/2000 14:0 0 EST 11/09/2000 14:28 EDT Neil Morales FERMINJesus MICROBIOLOGY - GENERAL ORDERABLE S Final Result [facility] [address] [place] [address] * CYTOPATHOLOGY (11/02/2000 0:00 EST) Pathology Report: CYTOPATHOLOGY REPORT Reports generated via electronic interface contain original data; however they are lacking the format of the original report. Caution should be taken when reading/interpreti ng unformatted reports. Name: ? RAYSA BERGMANLLHORACE Lee ? Accession #: ? [id number] : ? 1975 (Age: 25) ??F ?Collect Date: ? 11/02/2000 Location: ? [facility] ? Receive Date: ? 11/04/2000 Provider: ?NEIL MORALES CNM Copy to: ? Specimen/Source: ?ThinPrep Pap Test, Cervix/Endocervix Last Menstrual Period: ? 09/05/00 Menstrual/Pregnanc y Status: ? Other: ? HPVDX - HPV testing requested regardless of diagnosis on current ThinPrep Pap test. ? SPECIMEN ADEQUACY ? Satisfactory for evaluation. GENERAL CATEGORIZATION ? Epithelial Cell Abnormality DESCRIPTIVE DIAGNOSIS ? Atypical squamous cells of undetermined significance (ASCUS), cannot rule out squamous intraepithelial lesion (JUSTIN). RECOMMENDATION ? Recommend clinical correlation and further evaluation, as clinically indicated. ? Document reviewed and electronically signed by: ? Adrianna Correa MD ? Report Date: ??11/09/2000 09:14 End of Report [facility] 11/02/2000 11/04/2000 us Neil Morales [facility] PATHOLOGY ORDERABLES Final Resul t [facility] [address] [place] [address] documented in this encounter Visit Diagnoses Not on filedocumented in this encounter
--- OUTSIDE RECORDS SUMMARY | 2024-08-07 15:34 | XMS_ITS | Encounter Summary ---
Author Organization [facility] Address [address] [place] [address] Care Team Providers Care Shoe Folder Name Role Phone Unavailable Primary Care Provider Unavailabl e Encounter Details Date Type Department Care Team (Late st Contact Info) Description 07/17/2002 Results Only [facility] - Maple conversion [address] [place] [address] Tatum Colunga, [facility] [address] [place] [address] [place] [address] Social History Tobacco Use Types [...] Comments HPV DETECTION, HIGH RISK TYPES Routine 07/17/2002 13:40 EST CYTOPATHOLOGY Routine 07/17/2002 0:00 EST documented in this encounter Results * HUMAN PAPILLOMA VIRUS DNA TEST (07/17/2002 13:40 EST) Specimen Description Cervix, ThinPrep vial [facility] Result Positive for one or more of HPV types 16,18,31,33,35 ,39,45,51,52,5 6,58,59, or 68. These high/intermedi ate risk HPV types are associated with dysplasia and some cervical cancers. [facility] Report Status Final [id number] [facility] 07/17/2002 13:4 0 EST 07/20/2002 12:44 EST Tatum Colunga PROPERTY DAMAGE CLAIMS ADJUSTOR MICROBIOLOGY - GENERAL ORDER ARLETH Final Result [facility] [address] [place] [address] * CYTOPATHOLOGY (07/17/2002 0:00 EST) Pathology Report: CYTOPATHOLOGY REPORT Reports generated via electronic interface contain original data; however they are lacking the format of the original report. Caution should be taken when reading/interpreti ng unformatted reports. Name: ? DANIEL BERGMAN ? Accession #: ? [id number] : ? 1975 (Age: 27) ??F ?Collect Date: ? 07/17/2002 Location: ? [facility] ? Receive Date: ? 07/19/2002 Provider: ?TATUM COLUNGA PROPERTY DAMAGE CLAIMS ADJUSTOR Copy to: ?MEDINA ZAYAS SENIOR LIVING ADVISOR ? Specimen/Source: ?ThinPrep Pap Test, Cervix/Endocervix Last Menstrual Period: ? Hormonal/Contracep tive Status: ? Depo-Provera Previous Gynecologic Pathology: ? Yes HPV Other: ? HPVDX - HPV testing requested regardless of diagnosis on current ThinPrep Pap test. ? SPECIMEN ADEQUACY ? Satisfactory for Evaluation - transformation zone component present GENERAL CATEGORIZATION ? Negative for Intraepithelial Lesion or Malignancy ? Document reviewed and electronically signed by: ? Danielle Roberts, CT(ASCP) ? Report Date: ??07/20/2002 10:42 End of Report [facility] 07/17/2002 07/19/2002 us Tatum Colunga PROPERTY DAMAGE CLAIMS ADJUSTOR PATHOLOGY ORDERABLES Final R esult [facility] [address] [place] [address] documented in this encounter Visit Diagnoses Not on filedocumented in this encounter
--- OUTSIDE RECORDS SUMMARY | 2024-08-07 15:34 | XMS_ITS | Encounter Summary ---
Author Organization [facility] Address [address] [place] [address] Care Team Providers Care Allied Health Teacher Name Role Phone Unavailable Primary Care Provider Unavailabl e Encounter Details Date Type Department Care Team (Late st Contact Info) Description 06/16/2005 Results Only [facility] - Maple conversion [address] [place] [address] [place] [address] Social History Tobacco Use Types Packs/Day Years [...] Priority Date/Time Associated Diagnosis Comments CYTOPATHOLOGY Routine 06/16/2005 0:00 EST documented in this encounter Results * CYTOPATHOLOGY (06/16/2005 0:00 EST) Pathology Report: CYTOPATHOLOGY REPORT Reports generated via electronic interface contain original data; however they are lacking the format of the original report. Caution should be taken when reading/interpreti ng unformatted reports. Name: ? DANIEL BERGMAN ? Accession #: ? [id number] : ? 1975 (Age: 30) ??F ?Collect Date: ? 06/16/2005 Location: ? [facility] ? Receive Date: ? 06/17/2005 Provider: ?VENITA CHI CNM Copy to: ? Specimen/Source: ?ThinPrep Pap Test, Cervix/Endocervix, processed on [employer] ThinPrep Imaging System, with manual evaluation Last Menstrual Period: ? 05/22/05 Menstrual/Pregnanc y Status: ? Post Previous Gynecologic Pathology: ? ASC-US: 10/06 HPV: 07/09 pos. Yes: 10/04/03 pap negative Other: ? HPVA - HPV testing requested if ASC-US on the current ThinPrep Pap test. ? SPECIMEN ADEQUACY ? Satisfactory for Evaluation - transformation zone component present GENERAL CATEGORIZATION ? Negative for Intraepithelial Lesion or Malignancy INTERPRETATION ? Reactive cellular changes associated with inflammation present (includes repair). ? Document reviewed and electronically signed by: ? GREGOR MAYS MD ? Report Date: ??06/23/2005 16:25 End of Report [facility] 06/16/2005 06/17/2005 Venita Chi CNM PATHOLOGY ORDERABLES Final Res ult [facility] [address] [place] [address] documented in this encounter Visit Diagnoses Not on filedocumented in this encounter
--- OUTSIDE RECORDS SUMMARY | 2024-08-07 15:34 | XMS_ITS | Encounter Summary ---
Author Organization [facility] Address [address] [place] [address] Care Team Providers Care Decorating Instructor Name Role Phone Unavailable Primary Care Provider Unavailabl e Encounter Details Date Type Department Care Team (Late st Contact Info) Description 08/07/2007 Results Only [facility] - Maple conversion [address] [place] [address] Tatum Colunga, [facility] [address] [place] [address] [place] [address] Social History Tobacco Use Types [...] Priority Date/Time Associated Diagnosis Comments CYTOPATHOLOGY Routine 08/07/2007 0:00 EST documented in this encounter Results * CYTOPATHOLOGY (08/07/2007 0:00 EST) Pathology Report: CYTOPATHOLOGY REPORT Reports generated via electronic interface contain original data; however they are lacking the format of the original report. Caution should be taken when reading/interpreti ng unformatted reports. Name: ? DANIEL BERGMAN ? Accession #: ? [id number] : ? 1975 (Age: 32) ??F ?Collect Date: ? 08/07/2007 Location: ? [facility] ? Receive Date: ? 08/07/2007 Provider: ?TATUM COLUNGA LABORER SHIPYARD Copy to: ? Specimen/Source: ?ThinPrep Pap Test, Cervix/Endocervix, processed on [employer] ThinPrep Imaging System, with manual evaluation Last Menstrual Period: ? 07/20/07 Hormonal/Contracep tive Status: ? Intrauterine device: Paraguard Previous Gynecologic Pathology: ? ASC-US: 10/06 HPV: + 08/09 & 07/09 Other: ? Additional clinical information: 08/09, 07/09, & paps neg. HPVA - HPV testing requested if ASC-US on the current ThinPrep Pap test. ? SPECIMEN ADEQUACY ? Satisfactory for Evaluation - transformation zone component present - scant squamous epithelial component secondary to excessive mucus GENERAL CATEGORIZATION ? Negative for Intraepithelial Lesion or Malignancy ? Document reviewed and electronically signed by: ? NEWTON Esparza(ASCP) ? Report Date: ??08/10/2007 14:43 End of Report [facility] 08/07/2007 08/07/2007 us Tatum Colunga LABORER SHIPYARD PATHOLOGY ORDERABLES Final R esult [facility] [address] [place] [address] documented in this encounter Visit Diagnoses Not on filedocumented in this encounter
== END 2024-08-07 15:47 ==
PROVIDERS: PCP Family Medicine; Visit Provider Nurse Practitioner Family
DX: M25.562 Pain in left knee (principal)
CPT/HCPCS: 73564

== ENCOUNTER 2024-08-14 16:32 | Outpatient (CLI) | payer MEDICAID, SELFPAY ==
--- NOTE | 2024-08-14 | DI.US_ITS ---
Exam(s) US LOWER EXTREMITY VENOUS RT EXAM: US LOWER EXTREMITY VENOUS RT CLINICAL HISTORY: I83.819 Varicose veins of unspecified lower extremity w/pain TECHNIQUE: Right lower extremity venous ultrasound performed using grayscale, color-flow, and spectr al Doppler analysis. COMPARISON: No exams were available for comparison FINDINGS: The right common femoral, femoral and popliteal veins demonstrate normal compressibility, augmentatio n, and color Doppler. The posterior tibial and peroneal veins are patent. The saphenofemoral junctio n is unremarkable. There is thrombus seen in the right greater saphenous vein measuring at least 13 cm in length. It lies at least 4 cm from the saphenofemoral junction. There is no evidence of a Rachael er cyst. The soft tissues are unremarkable. IMPRESSION: 1. No evidence of a right lower extremity DVT. 2. Superficial thrombophlebitis. DATA REPOSITORY:
== END 2024-08-14 16:52 ==
LOC: DI 16:32
PROVIDERS: PCP Family Medicine; Visit Provider Nurse Practitioner Family
DX: I83.811 Varicose veins of right lower extremity with pain (principal)
CPT/HCPCS: 93971

== ENCOUNTER 2024-08-21 16:28 | Outpatient (REF) | payer MEDICAID, SELFPAY ==
[2024-08-21 21:38] LABS: Anion Gap 6.3 mmol/L (3-11); BUN 13 mg/dL (7-18); CO2 31.7 mmol/L (21.0-32.0); CREATININE 1.1 mg/dL (0.55-1.02); Calcium 9.5 mg/dL (8.5-10.1); Chloride 105 mmol/L (98-107); Estimated GFR 62.37 (mL/min/1.73m2); Glucose 101 mg/dL (74-106); Potassium 3.8 mmol/L (3.5-5.1); Sodium 143 mmol/L (136-145)
[2024-08-21 21:53] LABS: COMMENT (LAB VIEW ONLY) 127.93 mg/dL; PROTEIN 100.4 mg/dL; Prot/Crea Ur Ratio 0.78
[2024-08-21 21:55] LABS: Epithelial Cells Few HPF (Negative); RBC >50 HPF (0-2)
[2024-08-21 21:56] LABS: Bacteria Few HPF (Negative); C & S Indicated? C&S Done As Ordered; Crystals Few Calcium Oxalate HPF (Negative); Mucus Negative (Negative)
== END 2024-08-21 16:29 | disposition home or self-care (01) ==
LOC: LBN 16:28
PROVIDERS: PCP Family Medicine; Visit Provider Family Medicine
DX: R31.9 Hematuria, unspecified (principal); R82.89 Other abnormal findings on cytological and histological examination of urine
CPT/HCPCS: 80048; 81015; 82565; 84156; 87086

== ENCOUNTER 2024-08-27 01:24 | Outpatient (CLI) | payer MEDICAID, SELFPAY ==
--- NOTE | 2024-08-27 | DI.CT_ITS ---
Exam(s) CT ABDOMEN PELVIS WO/W EXAM: CT ABDOMEN PELVIS WO/W CLINICAL HISTORY: HEMATURIA,R31.9,PROTEINURIA,CALCIUM OXALATE CRYSTAL. TECHNIQUE: Imaging Protocol: Axial computed tomography images with coronal and sagittal reformatted images were created and reviewed. Images were performed from the lung bases through the ischial tuberosities before IV contrast and fol lowing IV contrast using a 70 second delay, followed by 7 minutes delayed images. CONTRAST MATERIAL: Intravenous: Omnipaque 350 Contrast volume:100 cc Oral: no COMPARISON: CT CT CHEST/ABD/PEL W from 12/07/2021 FINDINGS: Lung Bases: No acute findings. Liver: Enlarged. Moderate hepatic steatosis.. No measurable mass. Gallbladder and biliary tract: The gallbladder is contracted. No biliary dilation. Pancreas: Normal density, no abnormal calcifications or inflammatory process. Spleen: Normal. Kidneys: Normal size, contour and axis. Lower pole left kidney 13 millimeter staghorn calculus. The re are 3 adjacent smaller calcifications. The largest measures 7 millimeters. No ureteral calculi. Stable simple cyst of the right kidney. No follow-up recommended. No suspicious masses seen. Adrenal glands: No masses seen. Lymph nodes: Within normal limits. Abdominal Aorta: Abdominal portion non-dilated. Soft tissues: Unremarkable. Bladder: No gross wall thickening. No evidence of a mass.No evidence of calculi. Bowel: Stomach unremarkable. No obstruction or bowel wall thickening. Appendix normal. Normal quant ity of stool. Peritoneal cavity: No ascites, collection or mesenteric inflammatory response. Bones: Unremarkable for age.. Reproductive organs: Unremarkable for age. IUD noted. IMPRESSION: No suspicious renal mass. Nonobstructing stones are noted at the lower pole of the left kidney. No ureteral or bladder calculi or evidence of hydronephrosis. RADIATION DOSE DELIVERED: Total DLP DATA REPOSITORY: All CT scans at this facility are submitted to the National Radiology Data Registry (NRDR) Dose Index Registry (DIR) with the [employer] (ACR). RADIATION OPTIMIZATION: All CT scans at this facility use at least one of these dose optimization te chniques: automated exposure control; mA and/or kV adjustment per patient size (includes targeted exa ms where dose is matched to clinical indication); or iterative reconstruction.
[2024-08-27] MEDS: Omnipaque 350 MG/ML 100 ML BTL IJ (15:46)
[2024-08-27] MEDS: Normal Saline - Diluent 50 ML VIAL IJ (15:47)
--- NOTE | 2024-08-27 18:07 | DI.VRAD_ITS ---
PROCEDURE INFORMATION: Exam: CT Abdomen And Pelvis Without And With Contrast Exam date and time: 08/27/2024 3:43 PM Age: 49 years old Clinical indication: Other: Hematuria, r31.9, proteinuria, calcium oxalate crystals TECHNIQUE: Imaging protocol: Computed tomography of the abdomen and pelvis without and with contrast. Contrast material: OMNIPAQUE 350; Contrast volume: 100 ml; Contrast route: INTRAVENOUS (IV); COMPARISON: CT CHEST/ABD/PEL W 12/07/2021 6:54 PM FINDINGS: Lungs: 2 mm juxtapleural pulmonary nodule in the posterior right lung base series 5, image 70 without measurable calcification. For patients at low risk (minimal or absent history of smoking and of other known risk factors), no routine follow-up is indicated. For patients at high risk (history of smoking or of other known risk factors), consider optional CT at 12 months. (Rafael et al., Fleischner Society, 2017). Heart: Heart size normal. Esophagus: The visualized distal esophagus is largely contracted without gross abnormality. Liver: Moderate fatty infiltration of the liver. Mild fatty sparing around the gallbladder fossa . Mild hepatomegaly measuring 20 cm craniocaudal. Normal contour. No mass lesions. No intrahepatic biliary ductal dilatation. Gallbladder and biliary ducts: The gallbladder is contracted but otherwise unremarkable. Nondilated common bile duct. Pancreas: Normal. No inflammatory changes or ductal dilation. Spleen: Normal. No splenomegaly. Adrenal glands: Normal. No adrenal mass. Kidneys and ureters: 13 mm staghorn calculus in the lower pole of the left kidney with 3 adjacent smaller calcifications measuring up to 7 mm. No hydronephrosis or hydroureter. No ureteral stones are identified. There is a 17 mm cystic lesion in the medial right renal cortex with average density of 12 Hounsfield units and partial rim calcification posteriorly, unchanged from 12/07/2021. This does not require further assessment Stomach and bowel: Stomach moderately distended with food and fluid content but otherwise unremarkable. The small bowel is nondilated with no gross abnormality. No acute colonic abnormalities. Appendix: The appendix is normal in caliber and demonstrates no evidence of appendicitis. Intraperitoneal space: No peritoneal free fluid or air. Vasculature: No acute process. No abdominal aortic aneurysm. Lymph nodes: No adenopathy. Urinary bladder: The urinary bladder is partially contracted without gross abnormality. Reproductive: IUD in the uterus, grossly well-positioned. Ovaries are unremarkable. Bones/joints: No acute osseous abnormalities. Mild disc space narrowing L5-S1. Mild thoracic spondylosis. Soft tissues: No acute soft tissue abnormalities. Very small fatty umbilical hernia . No evidence of associated bowel herniation or strangulation. IMPRESSION: 1. Nonobstructive left renal stones, largest 13 mm. No ureteral stones or hydronephrosis. 2. Mild hepatomegaly and hepatic steatosis. 3. There is a 2 mm pulmonary nodule in the right lung base. Please see recommendations above. 4. Additional nonemergent findings detailed above. Dictated and Authenticated by: Jesse Hancock MD. Ordering:ARYA FERREIRA MD
== END 2024-08-27 01:44 ==
LOC: DI 01:24
PROVIDERS: PCP Family Medicine; Visit Provider Nurse Practitioner Family
DX: K76.0 Fatty (change of) liver, not elsewhere classified (principal)
CPT/HCPCS: 74178; J3490

== ENCOUNTER 2024-09-04 13:55 | Outpatient (REF) | payer MEDICAID, SELFPAY ==
[2024-09-04 13:08] LABS: Bilirubin Negative (Negative); Blood Large (Negative); Clarity Sl Cloudy (Clear); Glucose Negative (Negative); Ketones Negative (Negative); Leukocyte Esterase Moderate (Negative); Nitrite Negative (Negative); Specific Gravity 1.015 (1.005-1.025); Urobilinogen 0.2 mg/dL (Up to 0.2)
[2024-09-04 13:18] LABS: Bacteria Moderate HPF (Negative); C & S Indicated? C&S Done As Ordered; Casts Negative LPF (Negative); Crystals Negative HPF (Negative); Epithelial Cells Few HPF (Negative); Mucus Negative (Negative); RBC >50 HPF (0-2); WBC 20-50 HPF (0-5)
== END 2024-09-04 13:56 | disposition home or self-care (01) ==
LOC: LBN 13:55
PROVIDERS: PCP Family Medicine; Visit Provider Nurse Practitioner Gerontology
DX: R31.9 Hematuria, unspecified (principal); N20.0 Calculus of kidney; R82.89 Other abnormal findings on cytological and histological examination of urine
CPT/HCPCS: 81003; 81015; 87086

== ENCOUNTER 2024-10-03 01:48 | Outpatient (CLI) | payer MEDICAID, SELFPAY ==
--- NOTE | 2024-10-03 | DI.US_ITS ---
Exam(s) US LOWER EXTREMITY VENOUS RT EXAM: US LOWER EXTREMITY VENOUS RT CLINICAL HISTORY: THROMBOPHLEBITIS SUPERFICIAL VEINS LOWER EXT i80.299 TECHNIQUE: Right lower extremity venous ultrasound performed using grayscale, color-flow, and spectr al Doppler analysis. COMPARISON: US US LOWER EXTREMITY VENOUS RT from 08/14/2024 FINDINGS: The right common femoral, femoral and popliteal veins demonstrate normal compressibility, augmentatio n, and color Doppler. The posterior tibial and peroneal veins are patent. The saphenofemoral junctio n is unremarkable. There is a short segment of focal thrombus in a segment of a varicose vein in the distal thigh. The remainder of the thrombus seen previously has resolved. There is no evidence of a Shimpan cyst. The soft tissues are unremarkable. IMPRESSION: 1. No evidence of a right lower extremity DVT. 2. Significant interval decrease in the degree of superficial thrombophlebitis since 08/14/2024. DATA REPOSITORY:
== END 2024-10-03 02:08 ==
PROVIDERS: PCP Family Medicine; Visit Provider Nurse Practitioner Family
DX: I80.291 Phlebitis and thrombophlebitis of other deep vessels of right lower extremity (principal)
CPT/HCPCS: 93971

== ENCOUNTER 2024-10-10 15:05 | Outpatient (REF) | payer MEDICAID, SELFPAY ==
--- NOTE | 2024-10-10 14:00 | PAPFT_PTH ---
PATIENT: Ashely Bergman LOC: [facility] U#:[id number] AGE/SX: 49/F ROOM: RE10/10/[address]: Margo Pina NP : 1975 BED: DIS: 10/10/2024 SPEC #: [id number] RECD: 10/10/24 18:23 STATUS: TRISH REQ #: [id number] NIDHI: 10/10/24 14:[address]: Margo Pina NP [facility] Cytology RECD BY: Oxana Desouza ENTERED: 10/10/24 18:23 SP TYPE: PAPFT OTHR DR: Jordon Garcia MD Tissues: 1 - CX/ENDOCX FOR PAP SMEARS Procedures: PAP THIN PREP/UVM Screening HPV DNA PROBE Comments: [id number] (HPV 16 & 18/45)
== END 2024-10-10 15:06 | disposition home or self-care (01) ==
LOC: LBN 15:05
PROVIDERS: PCP Family Medicine; Visit Provider Nurse Practitioner Women's Health
DX: Z01.419 Encounter for gynecological examination (general) (routine) without abnormal findings (principal); Z30.431 Encounter for routine checking of intrauterine contraceptive device; Z12.4 Encounter for screening for malignant neoplasm of cervix
CPT/HCPCS: 88142; 87624

== ENCOUNTER 2024-10-15 00:21 | Emergency (ER) | payer MEDICAID, SELFPAY ==
[2024-10-15 00:36] VITALS: BP 180/92; PULSE 71; RESP 16; TEMP 36.8; O2SAT 98
--- NOTE | 2024-10-15 01:14 | ED.GENADUL_ITS ---
Discharge Plan Disposition Patient Disposition: Home Condition: Good Discharge Details Clinical Impression: Anxiety, Acute insomnia, Medication reaction Primary Care Provider: Jordon Garcia ED Provider: Lorena Zaidi Home Meds and New Rx's Prescriptions: New guanfacine 1 mg tablet 3 mg PO DAILY Qty: 21 0RF Continued Mirena 20 mcg/24 hours (6 yrs) 52 mg intrauterine device 1 device intrauterine ONCE Rx Instructions: as a single dose albuterol sulfate [Ventolin HFA] 90 mcg/actuation HFA aerosol inhaler 2 puff inhalation Q6H PRN Discontinued dextroamphetamine-amphetamine 15 mg capsule,extended release 24hr 15 mg PO DAILY MDD 1 capsule Qty: 28 0RF guanfacine 2 mg tablet 2 mg PO DAILY Qty: 30 0RF Discharge Instructions Instructions: Anxiety, Adult ED Additional Instructions: -STOP taking your Adderall. -Go back to taking 3mg of guanfacine (not 2mg). -You can take 1mg of lorazapam at bedtime for anxiety/insomnia. If that does not help within 1 hour, you can take another 0.5 to 1 mg. Do not take more than this. Do not drive or swim or bathe by yourself after taking this as it can make you very sleepy. -Call your primary care doctor in the morning to schedule an appointment for within the next 72 hours to followup on your visit here. At that visit discuss your medications, your anxiety & insomnia, and your blood pressure which is high here today. Return to the emergency department for new or worsening symptoms, including thoughts of self harm, hallucinations, or if you have any other concerns. Stand Alone Forms: Work Release Referrals: Jordon Garcia MD [Primary Care Provider] - [facility] General Mode of arrival: ambulatory . Date/Time Provider Initiated Documentation: 10/15/24 00:22 . Limitations to Documentation: no limitations . Information obtained by: patient . HPI Narrative: 49yo F with hx of anxiety & ADHD presenting for worsening anxiety and insomnia for the past 3-4 days. Anxiety has been gradually worsening for a while. Saw her PCP for this and was started Adderall on Tuesday and decreased her guanfacine from 3mg to 2mg. Since then anxiety has gotten acutely worse and she has not been able to sleep for 3-4 days. Feels 'panicky'. Had similar symptoms about a year and a half ago which improved with lorazapam, she then saw her PCP and started the guanfacine which had been working fairly well and she has not taken lorazapam for around a year. Reports that she does still have around 10 tablets of lorazapam at home- has not taken this because she was concerned about it interacting with the adderall. Denies SI/HI/AH/VH. Aside from anxiety, no other psychiatric diagnoses. Otherwise in her usual state of health with no fevers, chills, chest pain, shortness of breath, nausea, vomiting, or other concerns. Related Data Home Medications ?Medication ?Instructions ?Recorded ?Confirmed levonorgestrel 21 mcg/24 hr (up to 1 device intrauterine ONCE 08/13/20 10/15/24 8 years) 52 mg intrauterine device (Mirena) albuterol sulfate 90 mcg/actuation 2 puff inhalation Q6H PRN 08/30/24 10/15/24 aerosol inhaler (Ventolin HFA) guanfacine 1 mg tablet 3 mg (3 x 1 mg) PO DAILY #21 tabs 10/15/24 Previous Rx's ?Medication ?Instructions ?Recorded guanfacine 1 mg tablet 3 mg (3 x 1 mg) PO DAILY #21 tabs 10/15/24 Allergies Allergy/AdvReac Type Severity Reaction Status Date / Time erythromycin base AdvReac Severe vomiting Verified 10/15/24 00:38 General Stated Complaint: Anxiety HERMAN: 3 Review of Systems Narrative: see HPI Exam Narrative Exam Narrative: General: Alert, well appearing, well nourished, in no acute distress. Head: Normocephalic, atraumatic Neck: Trachea midline, ?Neck supple. Cardiac: ?RRR, no murmurs appreciated Resp: No respiratory distress. CTAB. Abd: ?Non-distended, Extremities: ?No deformities.? No peripheral edema. Neurologic: GCS 15. ? Moves all extremities freely against gravity Psych: Anxious, cooperative.? Well groomed.? Mood anxious, tired, affect congruent.? Speech with normal volume, rate, rythym and tone. Linear and goal directed.? Denies SI/HI/AH/VH. ? Does not appear to be responding to internal stimuli. Course Vital Signs Vital signs: Vital Signs Temperature 36.8 C 10/15/24 00:36 Pulse 71 10/15/24 00:36 Respiratory Rate 16 10/15/24 00:36 Blood Pressure 180/92 H 10/15/24 00:36 Pulse Oximetry 98 10/15/24 00:36 Temperature 36.8 C 10/15/24 00:36 Pulse 71 10/15/24 00:36 Respiratory Rate 16 10/15/24 00:36 Respiratory Effort Normal 10/15/24 00:40 Respiratory Depth Normal 10/15/24 00:40 Respiratory Pattern Normal 10/15/24 00:40 Blood Pressure 180/92 H 10/15/24 00:36 Pulse Oximetry 98 10/15/24 00:36 Oxygen Delivery Method Room Air 10/15/24 00:36 Oxygen Flow Rate 0 10/15/24 00:36 Pain Level 0 10/15/24 00:36 Medical Decision Making 49yo F with hx of anxiety & ADHD presenting for worsening anxiety and insomnia for the past 3-4 days, onset after starting Adderall and decreasing dose of guanfacine. Hypertensive on arrival, vital signs otherwise reassuring. Reports her PCP has been monitoring her blood pressure and they have discussed starting BP medications but had decided not to just yet. Reassuring physical exam. No SI/HI/AH/VH; does not present as manic or psychotic. Not suggestive of ACS, p ulmonary embolism, or other life threatening pathology; no indication for labs/EKG/imaging. Suspect reaction to medication changes. Advised her to return to her prior regimen (dc Adderall, return to 3mg of guanfacine) and will add short course of lorazapam at bedtime as needed for sleep. Instructed to followup closely with her PCP (within the next 48-72 hours) to discuss her medications, anxiety, and blood pressure. She is agreeable to this plan. Discharged home; discharge instructions and return precautions were reviewed with patient who verbalized understanding. All questions were answered and she is in full agreement with the plan. Quality:SDOH Health Related Social Needs: No Data to Display PFSH All Active Problems (Updated 10/15/24 @ 01:15 by Lorena Zaidi MD) Medication reaction (Acute) Acute insomnia (Acute) Anxiety (Chronic) High blood pressure determined by examination (Acute) Anxiety (Chronic) Staghorn calculus (Acute) Varicose veins of both lower extremities (Acute) Hematuria (Acute) Mild intermittent asthma (Acute) ADHD (Acute) Tension type headache (Acute) Generalized anxiety disorder (Acute) Obesity (Chronic) Mixed incontinence (Acute) IUD surveillance (Acute) Medical History Acute superficial venous thrombosis of lower extremity Surgical History History of back surgery Fx L2-L3 03/08/1998 Family History Father Alzheimer's dementia Dx early 50s Adopted Mother Alcohol use disorder Asthma Social History Smoking/Tobacco Use Status: Never Second Hand Exposure: Yes Smoking risk assessment performed?: Yes Alcohol Intake: former Drug use: Never Substance use type: does not use Counseling given: No Counseling provided: support program Adopted: No Caregiver/Support person: No Household members: children Housing: house Number of Children: 2 Communication Needs: None Education Level: college Details: Associates Degree Do you need help understanding health information?: Rarely 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 Sexually active: No Do you think of yourself as: straight/heterosexual Current gender identity: female What is your relationship status?: How often do you talk on the phone with friends or family?: three or more times per week How often do you get together with friends or relatives?: three or more times per week How often do you attend oriental orthodox or islam services?: decline to answer Do you belong to any clubs or organized social groups?: yes Panel score (0-1 are the most socially isolated patients): 2 NHANES result reviewed/action taken: Yes What type of physical activity do you participate in: other Details: horseback riding Frequency: 3-4 times per week Katya/Religious: Lutheran Seatbelt use: always Helmet use: Yes Helmet use: always Drive intox or ride w/intox sanitation truck driver: No Firearms in home: No Do you feel safe at home: Yes Female Reproductive History Menstrual control method: progestin IUCD History History 2 Para 2 Hx # Term Pregnancies Multiple births Hx # Pregnancies Ectopic pregnancies AB induced Hx Number of Living Children AB spontaneous
[2024-10-15 01:39] VITALS: BP 170/105; PULSE 77; O2SAT 100
[2024-10-15] MEDS: LORazepam 1 MG TAB 3 MG PO (01:39)
== END 2024-10-15 01:39 | disposition home or self-care (01) ==
PROVIDERS: Emergency Provider Student in an Organized Health Care Education/Training Program; PCP Family Medicine
DX: T50.905A Adverse effect of unspecified drugs, medicaments and biological substances, initial encounter (principal); G47.00 Insomnia, unspecified; F41.9 Anxiety disorder, unspecified; I10 Essential (primary) hypertension
CPT/HCPCS: 99283

== ENCOUNTER 2024-11-02 00:49 | Outpatient (CLI) | payer MEDICAID, SELFPAY ==
--- NOTE | 2024-11-02 15:00 | DI.MAMMO_ITS ---
Exam(s) MAMMO SCREENING EXAM: MAMMO SCREENING CLINICAL HISTORY: screening. TECHNIQUE: Bilateral full field digital CC and MLO mammographic images were obtained with 3D tomosyn thesis and utilizing computer aided detection (CAD). COMPARISON: . This is a baseline mammogram on this 49-year-old FINDINGS: Fibroglandular tissue pattern is predominately fatty. There are no new spiculated masses nor malignant appearing microcalcification groups. There is no significant architectural distortion nor skin thickening-retraction. IMPRESSION: No radiographic evidence of malignancy. BI-RADS Category 1 - Negative Breast Density - Category A - Almost entirely fatty Breast density Category C or D implies that the patient has dense breast tissue. Dense breast tissue can make it harder to find cancer on a mammogram. Dense breast tissue is also associated with an incr eased risk of breast cancer. This information about the result of the mammogram report was provided to the patient to raise their awareness. Use this report when you speak with the patient about their risks for breast cancer, which includes their family history. At that time, you may recommend additional screening tests (Ultrasoun d or MRI) as these tests may add significant information. A negative radiographic report should not delay biopsy if a dominant or clinically suspicious mass is present. Up to ten percent of cancers are not identified on mammography. A negative report may reinforce clinical impression. Adenosis and dense breasts may obscure an underlying neoplasm. False positive reports average 6 to 10%. Patient will receive a letter notifying them of these results.
== END 2024-11-02 01:09 ==
LOC: DI 00:49
PROVIDERS: PCP Family Medicine; Visit Provider Nurse Practitioner Women's Health
DX: Z12.31 Encounter for screening mammogram for malignant neoplasm of breast (principal); R92.313 Mammographic fatty tissue density, bilateral breasts
CPT/HCPCS: 77063; 77067

== ENCOUNTER 2024-12-07 00:45 | Outpatient (CLI) | payer MEDICAID, SELFPAY ==
--- NOTE | 2024-12-07 | DI.US_ITS ---
Exam(s) US LOWER EXTREMITY VENOUS RT EXAM: US LOWER EXTREMITY VENOUS RT CLINICAL HISTORY: Pain in rt lower leg, M79.661. TECHNIQUE: Lower extremity venous ultrasound performed using grayscale, color-flow, and spectral Do ppler analysis. COMPARISON: US US LOWER EXTREMITY VENOUS RT from 08/14/2024 US US LOWER EXTREMITY VENOUS RT from 10/03/2024 FINDINGS: The common femoral, femoral and popliteal veins demonstrate normal compressibility, augmentation, and color Doppler. The posterior tibial and peroneal veins are patent. The greater saphenous vein in the mid to distal thigh and upper calf is dilated and contains thrombus from the level of the mid GSV through calf region. This was nearly completely resolved on the prev ious exam. The small saphenous vein also contains thrombus in the proximal calf region and extends i nto the vein of Giacomini in the distal posterior thigh. No hematoma or Shipman's cyst is seen. IMPRESSION: Recurrence of greater saphenous and small saphenous vein thrombosis. No evidence of DVT. DATA REPOSITORY:
== END 2024-12-07 01:05 ==
LOC: DI 00:45
PROVIDERS: PCP Family Medicine; Visit Provider Nurse Practitioner Family
DX: I80.291 Phlebitis and thrombophlebitis of other deep vessels of right lower extremity (principal)
CPT/HCPCS: 93971

== ENCOUNTER 2025-05-21 19:30 | Outpatient (REF) | payer MEDICAID, SELFPAY | END 2025-05-21 19:31 | disposition home or self-care (01) | LOC: LBN 19:30 | PROVIDERS: PCP Family Medicine; Visit Provider Nurse Practitioner Family | DX: N30.01 Acute cystitis with hematuria (principal) | CPT/HCPCS: 87077; 87086; 87186 ==

== ENCOUNTER 2025-06-04 19:54 | Outpatient (REF) | payer MEDICAID, SELFPAY | END 2025-06-04 19:55 | disposition home or self-care (01) | LOC: LBN 19:54 | PROVIDERS: PCP Family Medicine; Visit Provider Nurse Practitioner Family | DX: N30.01 Acute cystitis with hematuria (principal) | CPT/HCPCS: 87077; 87086; 87186 ==

== ENCOUNTER 2025-06-23 19:01 | Emergency (ER) | payer MEDICAID, SELFPAY ==
[2025-06-23 19:03] VITALS: BP 130/84; PULSE 67; RESP 16; O2SAT 96
--- NOTE | 2025-06-23 19:15 | DI.CT_ITS ---
Exam(s) CT RENAL COLIC WO EXAM: CT RENAL COLIC WO CLINICAL HISTORY: UTI, known kidney stone. TECHNIQUE: Imaging Protocol: Axial computed tomography images with coronal and sagittal reformatted images were created and reviewed. COMPARISON: CT CT ABDOMEN PELVIS WO/W from 08/27/2024 FINDINGS: Lung Bases: No acute findings. Liver: Normal hepatic steatosis. No measurable mass. Gallbladder and biliary tract: No radiodense calculus. No biliary ductal dilation. Pancreas: No abnormal calcifications or inflammatory process. Spleen: Normal size. Kidneys: Normal size, contour and axis. Nonobstructing stones again noted at the lower pole of the left kidney. Stable right renal cyst. No obstructive uropathy. No suspicious masses seen. Adrenal glands: No mass is seen. Lymph nodes: Within normal limits. Vasculature: Abdominal aorta non-dilated. Bladder:No stones. No gross wall thickening. No evidence of mass. Bowel: No obstruction. No bowel wall thickening. Normal quantity of stool. The appendix is normal. Peritoneal cavity: No ascites.No free air. No focal collection. No mesenteric inflammatory response. Reproductive organs: Within normal limits. IUD Bones: Unremarkable for age. Soft Tissues: Within normal limits. IMPRESSION: Nonobstructing stones at the lower pole of the left kidney. No acute abnormality is seen in the abdomen or pelvis. The preliminary [facility] report was reviewed. RADIATION DOSE DELIVERED: 872.91mGy.cm Total DLP 872.91mGy.cm Total DLP DATA REPOSITORY: All CT scans at this facility are submitted to the National Radiology Data Registry (NRDR) Dose Index Registry (DIR) with the [employer] (ACR). RADIATION OPTIMIZATION: All CT scans at this facility use at least one of these dose optimization techniques: automated exposure control; mA and/or kV adjustment per patient size (includes targeted exams where dose is matched to clinical indication); or iterative reconstruction.
[2025-06-23 19:17] LABS: Glucose Negative (Negative)
[2025-06-23 19:29] LABS: RBC 0-2 HPF (0-2)
--- NOTE | 2025-06-23 19:37 | ED.GENADUL_ITS ---
Discharge Plan Disposition Patient Disposition: Home Condition: Stable Discharge Details Clinical Impression: Urinary tract infection, Bacterial vaginosis Primary Care Provider: Jordon Garcia ED Provider: Juan Antonio Gardner Home Meds and New Rx's Prescriptions: New cefpodoxime 200 mg tablet 200 mg PO BID 14 Days Qty: 28 0RF Rx Instructions: must administer with a meal/food metronidazole 500 mg tablet 500 mg PO BID 7 Days Qty: 14 0RF Continued Mirena 20 mcg/24 hours (6 yrs) 52 mg intrauterine device 1 device intrauterine ONCE Rx Instructions: as a single dose (DME) [facility] Spacer See Rx Instructions .ROUTE .MEDSUPPLY Qty: 1 Patient Comments: USE DIRECTED WITH ALBUTEROL INHALER Rx Instructions: As directed lorazepam 1 mg tablet 0.5 - 1 mg PO QHS PRN (Reason: insomnia) Qty: 10 0RF atomoxetine 40 mg capsule 40 mg PO DAILY Qty: 30 2RF albuterol sulfate [Ventolin HFA] 90 mcg/actuation HFA aerosol inhaler 2 puff inhalation Q6H PRN melatonin 5 mg tablet 5 mg PO HS PRN trazodone 100 mg tablet 100 mg PO QHS Qty: 90 3RF guanfacine 1 mg tablet 4 mg PO DAILY Qty: 360 3RF losartan 25 mg tablet 25 mg PO DAILY Qty: 90 3RF rivaroxaban 10 mg tablet 10 mg PO DAILY Qty: 90 1RF Discharge Instructions Instructions: Cefpodoxime, Urinary Tract Infection, Adult ED Additional Instructions: You were seen in the emergency department for your urinary tract infection, your CT scan shows no obstructing renal stone. I am sending you home on antibiotics cefpodoxime, you have been positive for E. coli in the past that has no antibiotic resistance so this should take care of the infection, take this as prescribed follow-up with your urology visits, please return for any emergent concerns like worsening flank pain, fever, urinary obstruction. We sent off basic STD testing, please check your portal for results in the coming days for this and follow-up with your primary care provider. You had mildly elevated lipase which is a pancreas enzyme and you could have had a brief gallbladder attack on with your nausea that could also be contributing to your symptoms, please have your primary care provider order an outpatient ultrasound of the right upper quadrant abdomen Stand Alone Forms: Portal Information Referrals: Jordon Garcia MD [Primary Care Provider, Medicine] [facility] General Date/Time Provider Initiated Documentation: 06/23/25 19:15 . HPI Narrative: 50 year-old female presents to ED today by POV/ambulating with a chief complaint of dysuria, has been dealing with treatment failure for UTI for about 4 weeks now. Quality described as discomfort with urinating, not much R flank pain, but endorsed some nausea this past and peeing many times throughout the night, no radiation to fever, current nausea, cough or shortness of breath, endorses some cloudy urine and some bloody urine intermittently. Severity is described as moderate. Palliating factors include has tried many antibiotics with relief until she completes them and then her UTI returns. Provoking factors include nothing specific. Events leading up to the incident/Associated Symptoms: Patient is also wondering whether this could be related to her new boyfriend of 4 months. 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 Related Data Home Medications Medication Instructions Recorded Confirmed levonorgestrel (Mirena) 1 device intrauterine ONCE 0 08/13/20 06/23/25 albuterol sulfate 90 mcg/actuation 2 puff inhalation Q 6H PRN 08/30/24 06/23/25 aerosol inhaler (Ventolin HFA) inhalational spacing device #1 ea 10/16/24 06/23/25 (Lamine Mora [facility] spacer) lorazepam 1 mg tablet 0.5 - 1 mg (0.5 - 1 x 1 mg) PO QHS 10/16/24 06/23/25 PRN insomnia #10 tabs melatonin 5 mg tablet 5 mg PO HS PRN 10/31/2406/08 trazodone 100 mg tablet 100 mg PO QHS #90 tabs 01/1706/23/25 guanfacine 1 mg tablet 4 mg (4 x 1 mg) PO DAILY #36 0 tabs 02/06/25 06/23/25 losartan 25 mg tablet 25 mg PO DAILY #90 tabs 05/0206/23/25 atomoxetine 40 mg capsule 40 mg PO DAILY #30 caps 04/0806/23/25 rivaroxaban 10 mg tablet 10 mg PO DAILY #90 tabs 04/0806/23/25 cefpodoxime 200 mg tablet 200 mg PO BID 14 days #28 ta bs 06/23/25 metronidazole 500 mg tablet 500 mg PO BID 7 days #14 t abs 06/23/25 Previous Rx's Medication Instructions Recorded lorazepam 1 mg tablet 0.5 - 1 mg (0.5 - 1 x 1 mg) PO QHS 10/16/24 PRN insomnia #10 tabs trazodone 100 mg tablet 100 mg PO QHS #90 tabs 01/17 guanfacine 1 mg tablet 4 mg (4 x 1 mg) PO DAILY #36 0 tabs 02/06/25 losartan 25 mg tablet 25 mg PO DAILY #90 tabs 05/02 atomoxetine 40 mg capsule 40 mg PO DAILY #30 caps 04/08 09/01 rivaroxaban 10 mg tablet 10 mg PO DAILY #90 tabs 04/08 10/02 cefpodoxime 200 mg tablet 200 mg PO BID 14 days #28 ta bs 06/23/25 metronidazole 500 mg tablet 500 mg PO BID 7 days #14 t abs 06/23/25 Allergies Allergy/AdvReac Type Severity Reaction Status Date / Time erythromycin base AdvReac Severe vomiting Verified 06/23/25 19:18 General Stated Complaint: Urinary HERMAN: 4 Review of Systems All systems reviewed & are unremarkable except as noted in HPI and below Exam Narrative Exam Narrative: GENERAL APPEARANCE: Well-nourished, non-toxic, awake and alert, atraumatic, no acute distress. SKIN: Warm, pink, dry, intact, without rashes/lesions/ulcerations. HEAD: Normocephalic, atraumatic, normal hair distribution for gender/age. EYES: Normal conjunctiva, no exudates on lids/lashes. ENT: Nares patent, no circumoral cyanosis, no facial swelling NECK: Supple, trachea midline, painless cervical ROM. LUNGS/CHEST: Lungs CTA bilaterally, non-labored respirations, normal A/P diameter, symmetrical expansion, no chest wall deformity HEART (CV/PV): Regular rate and rhythm without murmur, no peripheral edema, no JVD. ABDOMEN: Soft, non-distended, no guarding. MSK: Normal ROM, no swelling/deformity to bilateral UEs or LEs, moving all extremities without weakness, no cyanosis, spine midline without tenderness, normal curvature. NEURO: Mental Status AAOx4 - alert to person, place, time, events No facial droop, no forehead involvement. Motor: No focal weakness - strength 5/5 in bilateral UEs and LEs, proximal and distal, symmetric. Sensory: sensation intact to light touch globally. Gait normal: patient ambulated without ataxia into ED room. PSYCH: euthymic, cooperative, pleasant, appropriate speech Course Vital Signs Vital signs: Vital Signs Pulse 67 06/23/25 19:03 Respiratory Rate 16 06/23/25 19:03 Blood Pressure 130/84 06/23/25 19:03 Pulse Oximetry 96 06/23/25 19:03 Pulse 67 06/23/25 19:03 Respiratory Rate 16 06/23/25 19:03 Blood Pressure 130/84 06/23/25 19:03 Blood Pressure Position Sitting 06/23/25 19:03 Pulse Oximetry 96 06/23/25 19:03 Oxygen Delivery Method Room Air 06/23/25 19:03 Oxygen Flow Rate 0 06/23/25 19:03 Pain Level 0 06/23/25 19:22 Lab/Test Results Lab/Test Results: Laboratory Tests Range/Units 06/23/25 19:04 Urine Color (Yellow) Yellow Urine Clarity (Clear) Sl Cloudy Urine pH (5-8) 6.0 Ur Specific Jefferson (1.005-1.025) 1.010 Urine Protein (Neg-Trace) mg/dL Negative Urine Ketones (Negative) mg/dL Negative Urine Blood (Negative) Small H Urine Nitrite (Negative) Negative Urine Bilirubin (Negative) Negative Urine Urobilinogen (Up to 0.2) mg/dL 0.2 Ur Leukocyte Esterase (Negative) Large H Urine RBC (0-2) HPF 0-2 Urine WBC (0-5) HPF 10-20 H Ur Epithelial Cells (Negative) HPF Many Urine Crystals (Negative) HPF Negative Urine Bacteria (Negative) HPF Many Urine Casts (Negative) LPF Negative Urine Mucus (Negative) Negative Ur Culture Indicated? No/Sq. Contamination Urine Glucose (Negative) mg/dL Negative POC- Test(urine) Negative Medical Decision Making This dictation utilizes [id number] dictation software and may contain unedited grammatical errors. 50 year-old female presents to ED today by POV/ambulating with a chief complaint of dysuria, has been dealing with treatment failure for UTI for about 4 weeks now. Quality described as discomfort with urinating, not much R flank pain, but endorsed some nausea this past and peeing many times throughout the night, no radiation to fever, current nausea, cough or shortness of breath, endorses some cloudy urine and some bloody urine intermittently. Severity is described as moderate. Palliating factors include has tried many antibiotics with relief until she completes them and then her UTI returns. Provoking factors include nothing specific. Events leading up to the incident/Associated Symptoms: Patient is also wondering whether this could be related to her new boyfriend of 4 months. Patients' medical history: Known staghorn calculus, history of superficial thrombophlebitis and varicose veins. Family and social history: Noncontributory. Pertinent exam findings / vital signs include no CVA tenderness to percussion bilaterally, no anterior abdominal tenderness, stable vitals and nontoxic afebrile. Differential / pathologies of concern include renal stone, UTI, pyelonephritis, infected kidney stone. Diagnostic studies of: - CBC, CMP, lactate, lipase, UA, CT renal colic study, added vaginal pathogen screen, NG/GC RNA send out, RPR, HIV. 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 ED Course/Assessment/Plan: 50-year-old female has been dealing with treatment failure for UTI for about 4 weeks and is having recurrent symptoms as she stops antibiotics, her urine cultures in the past have been pansensitive E. coli and I did start her on cefpodoxime with our culture pending with 10-20 WBCs on micro, she wonders if this could be from hygiene or wiping which is possible or possibly from her new partner over 4 months, has been a number of years since she has had any STI screening so we did send those off as well as a vaginal pathogen screen with patient discharged with these results pending. Recommend she seek an outpatient ultrasound of the right upper quadrant for her mildly elevated lipase as it is possible she had a gallstone attack this past when she felt some nausea. Findings not consistent with sepsis, obstructive uropathy, pyelonephritis. Disposition of Urinary Tract Infection. Patient verbalized understanding of the plan and return to ED criteria and engaged in shared decision making. Medical Records Medical records reviewed: Yes I reviewed the patient's medical records. Imaging Data Radiologic Study: Attestation: I personally reviewed and interpreted this imaging study as follows: Imaging: CT Scan Radiologist's impression: Exam: CT Abdomen And Pelvis Without Contrast Exam date and time: 06/23/2025 7:25 PM Age: 50 years old Clinical indication: Abdominal pain; Flank; Left; UTI, known kidney stone TECHNIQUE: Imaging protocol: Computed tomography of the abdomen and pelvis without contrast. Radiation optimization: All CT scans at this facility use at least one of these dose optimization techniques: automated exposure control; mA and/or kV adjustment per patient size (includes targeted exams where dose is matched to clinical indication); or iterative reconstruction. COMPARISON: CT ABDOMEN PELVIS WO/W 08/27/2024 3:43 PM FINDINGS: Lungs: Lung bases are clear. Liver: The liver has a normal appearance. Gallbladder and biliary ducts: The gallbladder is unremarkable. No biliary ductal dilatation. Pancreas: The pancreas demonstrates normal size. No pancreatic ductal dilatation. Spleen: The spleen demonstrates normal size. Adrenal glands: The adrenal glands have a normal appearance. Kidneys and ureters: Nonobstructing calculi are visualized within the left kidney. A cystic lesion is present at the lower pole of the right kidney with probable rim calcification. Finding is similar to the comparison CT from 12/07/2021. No hydronephrosis. No hydroureter or ureterolithiasis. Stomach and bowel: The bowel demonstrates overall normal caliber and wall thickness. Appendix: The appendix is thin walled. Intraperitoneal space: Unremarkable. No free air. No significant fluid collection. Vasculature: The IVC and aorta have a normal appearance. Lymph nodes: No enlarged lymph nodes. Urinary bladder: The bladder is thin walled and fluid filled. Reproductive: The uterus has a normal appearance. An IUD is present in the uterine fundus where expected. Bones/joints: Bones have a normal appearance. No acute fracture or suspicious bone lesion. Soft tissues: Unremarkable. IMPRESSION: 1. No acute intra-abdominal findings. 2. Normal appendix. 3. Nonobstructing nephrolithiasis. Dictated and Authenticated by: Jael Wooten MD. Lab Data Lab results reviewed: Yes I reviewed the patient's lab results. Labs: 06/23/25 20:16 Vaginal Vaginitis Screen - Pending Laboratory Tests Range/Units 06/23/25 06/23/25 19:04 19:48 WBC (4.4-10.8) 10^3/uL 8.39 RBC (3.93-5.22) 10^6/uL 4.35 Hgb (11.2-15.7) g/dL 12.8 Hct (36.0-46.0) % 38.8 MCV (80-95) fL 89 MCH (27.0-33.0) pg 29.4 MCHC (32.0-36.0) % 33.0 RDW (11.7-14.6) % 12.7 Plt Count (130-400) 10^3/uL 267 MPV (8.0-11.0) fL 9.4 Immature Gran % % 0.2 Neutrophils % % 53.9 Lymphocytes % % 36.2 Monocytes % % 7.3 Eosinophils % % 2.0 Basophils % % 0.4 Nucleated RBC % (0.0-0.3) % 0.0 Absolute Neutrophils (1.2-6.7) 10^3/uL 4.52 Absolute Lymphocytes (1.2-3.4) 10^3/uL 3.04 Absolute Monocytes (0.1-0.8) 10^3/uL 0.61 Absolute Eosinophils (0.0-0.7) 10^3/uL 0.17 Absolute Basophils (0.0-0.2) 10^3/uL 0.03 VBG Lactate (<or=2.0) mmol/L 1.2 Sodium (136-145) mmol/L 142 Potassium (3.5-5.1) mmol/L 3.8 Chloride (98-107) mmol/L 106 Carbon Dioxide (20.0-31.0) mmol/L 29.0 Anion Gap (3-11) mmol/L 7 BUN (9-23) mg/dL 15 Creatinine (0.55-1.02) mg/dL 1.0 Est GFR (CKD-EPI 2021) (mL/min/1.73m2) 57.74 Glucose (74-106) mg/dL 94 Calcium (8.3-10.6) mg/dL 9.1 Total Bilirubin (0.2-1.2) mg/dL 0.30 AST (<34) U/L 23 ALT (10-49) U/L 32 Alkaline Phosphatase (46-116) U/L 49 Total Protein (5.7-8.2) g/dL 7.0 Albumin (3.4-5.0) g/dL 4.1 Lipase (<53) U/L 65 H Urine Color (Yellow) Yellow Urine Clarity (Clear) Sl Cloudy Urine pH (5-8) 6.0 Ur Specific Jefferson (1.005-1.025) 1.010 Urine Protein (Neg-Trace) mg/dL Negative Urine Ketones (Negative) mg/dL Negative Urine Blood (Negative) Small H Urine Nitrite (Negative) Negative Urine Bilirubin (Negative) Negative Urine Urobilinogen (Up to 0.2) mg/dL 0.2 Ur Leukocyte Esterase (Negative) Large H Urine RBC (0-2) HPF 0-2 Urine WBC (0-5) HPF 10-20 H Ur Epithelial Cells (Negative) HPF Many Urine Crystals (Negative) HPF Negative Urine Bacteria (Negative) HPF Many Urine Casts (Negative) LPF Negative Urine Mucus (Negative) Negative Ur Culture Indicated? No/Sq. Contamination Urine Glucose (Negative) mg/dL Negative PFSH All Active Problems (Updated 06/23/25 @ 22:04 by JOHNNY Menendez) Bacterial vaginosis (Acute) Urinary tract infection (Acute) Elevated blood pressure reading (Acute) High blood pressure determined by examination (Acute) Anxiety (Chronic) Staghorn calculus (Acute) Varicose veins of both lower extremities (Acute) Hematuria (Acute) Mild intermittent asthma (Acute) ADHD (Acute) Tension type headache (Acute) Generalized anxiety disorder (Acute) Obesity (Chronic) Mixed incontinence (Acute) IUD surveillance (Acute) Medical History Acute superficial venous thrombosis of lower extremity Surgical History History of back surgery Fx L2-L3 03/08/1998 Family History Father Alzheimer's dementia Dx early 50s Adopted Mother Alcohol use disorder Asthma Social History Smoking/Tobacco Use Status: Never Second Hand Exposure: Yes Smoking risk assessment performed?: Yes Alcohol Intake: former Drug use: Never Substance use type: does not use Counseling given: No Counseling provided: support program Adopted: No Caregiver/Support person: No Household members: children Housing: house Number of Children: 2 Communication Needs: None Education Level: college Details: Associates Degree Do you need help understanding health information?: Rarely 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 Sexually active: No Do you think of yourself as: straight/heterosexual Current gender identity: female What is your relationship status?: How often do you talk on the phone with friends or family?: three or more times per week How often do you get together with friends or relatives?: three or more times per week How often do you attend jainism or scientology services?: decline to answer Do you belong to any clubs or organized social groups?: yes Panel score (0-1 are the most socially isolated patients): 2 NHANES result reviewed/action taken: Yes What type of physical activity do you participate in: other Details: horseback riding Frequency: 3-4 times per week Katya/Christian: Bahai Seatbelt use: always Helmet use: Yes Helmet use: always Drive intox or ride w/intox stock driver: No Firearms in home: No Do you feel safe at home: Yes Female Reproductive History Menstrual control method: progestin IUCD History History 2 Para 2 Hx # Term Pregnancies Multiple births Hx # Pregnancies Ectopic pregnancies AB induced Hx Number of Living Children AB spontaneous
--- NOTE | 2025-06-23 19:45 | DI.VRAD_ITS ---
PROCEDURE INFORMATION: Exam: CT Abdomen And Pelvis Without Contrast Exam date and time: 06/23/2025 7:25 PM Age: 50 years old Clinical indication: Abdominal pain; Flank; Left; UTI, known kidney stone TECHNIQUE: Imaging protocol: Computed tomography of the abdomen and pelvis without contrast. Radiation optimization: All CT scans at this facility use at least one of these dose optimization techniques: automated exposure control; mA and/or kV adjustment per patient size (includes targeted exams where dose is matched to clinical indication); or iterative reconstruction. COMPARISON: CT ABDOMEN PELVIS WO/W 08/27/2024 3:43 PM FINDINGS: Lungs: Lung bases are clear. Liver: The liver has a normal appearance. Gallbladder and biliary ducts: The gallbladder is unremarkable. No biliary ductal dilatation. Pancreas: The pancreas demonstrates normal size. No pancreatic ductal dilatation. Spleen: The spleen demonstrates normal size. Adrenal glands: The adrenal glands have a normal appearance. Kidneys and ureters: Nonobstructing calculi are visualized within the left kidney. A cystic lesion is present at the lower pole of the right kidney with probable rim calcification. Finding is similar to the comparison CT from 12/07/2021. No hydronephrosis. No hydroureter or ureterolithiasis. Stomach and bowel: The bowel demonstrates overall normal caliber and wall thickness. Appendix: The appendix is thin walled. Intraperitoneal space: Unremarkable. No free air. No significant fluid collection. Vasculature: The IVC and aorta have a normal appearance. Lymph nodes: No enlarged lymph nodes. Urinary bladder: The bladder is thin walled and fluid filled. Reproductive: The uterus has a normal appearance. An IUD is present in the uterine fundus where expected. Bones/joints: Bones have a normal appearance. No acute fracture or suspicious bone lesion. Soft tissues: Unremarkable. IMPRESSION: 1. No acute intra-abdominal findings. 2. Normal appendix. 3. Nonobstructing nephrolithiasis. Dictated and Authenticated by: Jael Wooten MD. Orderin Jj Romano MD
[2025-06-23] MEDS: Normal Saline 1,000 ML 1000 ML IV (19:47)
[2025-06-23] MEDS: Acetaminophen 500 MG TAB 1000 MG PO (19:47)
[2025-06-23 19:57] LABS: Abs Immature Grans 0.02 10^3/uL (0.0-0.06); HCT 38.8 % (36.0-46.0); HGB 12.8 g/dL (11.2-15.7); Immature Grans % 0.2 %; MCH 29.4 pg (27.0-33.0); MCHC 33.0 % (32.0-36.0); MCV 89 fL (80-95); MPV 9.4 fL (8.0-11.0); Platelet Count 267 10^3/uL (130-400); RBC 4.35 10^6/uL (3.93-5.22); RDW 12.7 % (11.7-14.6); RDW-SD 42.0 fL; WBC 8.39 10^3/uL (4.4-10.8)
[2025-06-23 20:17] LABS: Lipase 65 U/L (<53)
[2025-06-23 20:19] LABS: ALT 32 U/L (10-49); AST 23 U/L (<34); Albumin 4.1 g/dL (3.4-5.0); Alkaline Phosphatase 49 U/L (46-116); Anion Gap 7 mmol/L (3-11); BUN 15 mg/dL (9-23); Bilirubin, Total 0.30 mg/dL (0.2-1.2); CO2 29.0 mmol/L (20.0-31.0); Calcium 9.1 mg/dL (8.3-10.6); Chloride 106 mmol/L (98-107); Glucose 94 mg/dL (74-106); Potassium 3.8 mmol/L (3.5-5.1); Sodium 142 mmol/L (136-145); Total Protein 7.0 g/dL (5.7-8.2)
[2025-06-23] MEDS: cefTRIAXone 2 GM/50 ML BAG IVPB (20:31)
[2025-06-23 21:12] VITALS: BP 126/78; PULSE 68; RESP 16; O2SAT 97
--- NOTE | 2025-06-24 13:51 | W.ED.FU ---
Date of service: 06/24/25 Time of Service: 13:51 Follow Up Plan: I attempted to call this patient at home that she had been diagnosed with Gardnerella for which she had been treated with metronidazole in the setting of BV. Patient reported that she was feeling well. Advised her to take her antibiotics as directed and to return to the ED if she developed any fevers chills abdominal pain or any worsening symptoms.
[2025-06-24 19:38] LABS: HIV-1/2 Ag & Ab Screen Negative (Negative)
[2025-06-25 10:39] LABS: Syphilis Serology (RPR) Negative (Negative)
[2025-06-25 12:45] LABS: Chlamydia Result Negative (Negative); GC Result Negative (Negative)
== END 2025-06-23 21:14 | disposition home or self-care (01) ==
PROVIDERS: Emergency Provider Physician Assistant; PCP Family Medicine
DX: N39.0 Urinary tract infection, site not specified (principal); N76.0 Acute vaginitis; B96.89 Other specified bacterial agents as the cause of diseases classified elsewhere
CPT/HCPCS: 80053; 81025; 83690; 87389; 87491; 87591; 96361; 96365; 99284; 74176; 81003; 81015; 83605; 85025; 86592; 87086; 87480; 87510; 87660; J0696

== ENCOUNTER 2025-07-21 15:09 | Emergency (ER) | payer MEDICAID, SELFPAY ==
[2025-07-21] VITALS (15 sets, daily range): BP systolic 135–168; BP diastolic 61–110; PULSE 41–54; RESP 9–21; TEMP 36.6; O2SAT 92–100
--- NOTE | 2025-07-21 15:36 | W.ED.GENAD ---
Discharge Plan Disposition Patient Disposition: Home Condition: Good Discharge Details Clinical Impression: Nausea & vomiting Primary Care Provider: Jordon Garcia ED Provider: Niya Ortez Home Meds and New Rx's Prescriptions: No Action Mirena 20 mcg/24 hours (6 yrs) 52 mg intrauterine device 1 device intrauterine ONCE Rx Instructions: as a single dose (DME) Leonelharjitradha Abby [facility] Spacer See Rx Instructions .ROUTE .MEDSUPPLY Qty: 1 Patient Comments: USE DIRECTED WITH ALBUTEROL INHALER Rx Instructions: As directed lorazepam 1 mg tablet 0.5 - 1 mg PO QHS PRN (Reason: insomnia) Qty: 10 0RF atomoxetine 40 mg capsule 40 mg PO DAILY Qty: 30 2RF estradiol 0.01 % (0.1 mg/gram) cream 1 g vaginal DIRECTED Qty: 60 3RF Rx Instructions: Apply a pea sized amount vaginally nightly for 2 weeks, then reduce to 2-3 times per week albuterol sulfate [Ventolin HFA] 90 mcg/actuation HFA aerosol inhaler 2 puff inhalation Q6H PRN melatonin 5 mg tablet 5 mg PO HS PRN trazodone 100 mg tablet 100 mg PO QHS Qty: 90 3RF losartan 25 mg tablet 25 mg PO DAILY Qty: 90 3RF rivaroxaban 10 mg tablet 10 mg PO DAILY Qty: 90 1RF guanfacine 1 mg tablet 3 mg PO DAILY Discharge Instructions Additional Instructions: Please follow-up with [facility] tomorrow for your duplex ultrasound as scheduled. Your nausea and vomiting is likely due to a viral illness. There are no concerns at this time for infection of your surgical site. Stay well-hydrated, drinking plenty of fluids throughout the day. I recommend that you start with electrolyte rich drinks such as Gatorlyte, progressed to broths and dry toast/chicken noodle soup. You develop new nausea/vomiting please use the Zofran ODT as provided, placing the tablet under your tongue. This may be used every 6-8 hours as needed. Return to emergency care if you develop new persistent fevers, uncontrollable vomiting/abdominal pain, redness/swelling/numbness/extreme pain to your leg, or if you are very worried and need to be rechecked immediately Stand Alone Forms: Portal Information HPI General Date/Time Provider Initiated Documentation: 07/21/25 15:10. HPI Narrative: Ashely is a 50-year-old female who presents to the emergency department today for evaluation of nausea/vomiting accompanied by mild abdominal pain attributed to retching, lightheadedness, mild headache, sore throat, and mild cough. She reports that she developed some mild URI symptoms earlier this week, has had negative for flu and COVID, believes this is due to asthma. Had surgery for varicose veins on right leg on Tuesday. Was feeling fine until this morning, at 530 she woke up with intractable nausea/vomiting, has been unable to keep anything down. Recorded a one-time fever of 101.6 oral, no fever since then. Denies chills, body aches, vision changes, episodes of passing out, congestion/postnasal drip, chest pain, difficulty breathing/wheezing, change in bladder function, extremity weakness/numbness. She has not had a BM since procedure. Denies drainage onto her bandages, says that she has to change her bandages today. Varicose vein procedure performed at [facility]. Related Data Home Medications ?Medication ?Instructions ?Recorded ?Confirmed levonorgestrel (Mirena) 1 device intrauterine ONCE 08/13/20 07/21/25 albuterol sulfate 90 mcg/actuation 2 puff inhalation Q6H PRN 08/30/24 07/21/25 aerosol inhaler (Ventolin HFA) inhalational spacing device #1 ea 10/16/24 07/21/25 (Lamine Mora [facility] spacer) lorazepam 1 mg tablet 0.5 - 1 mg (0.5 - 1 x 1 mg) PO QHS 10/16/24 07/21/25 PRN insomnia #10 tabs melatonin 5 mg tablet 5 mg PO HS PRN 10/31/24 07/21/25 trazodone 100 mg tablet 100 mg PO QHS #90 tabs 01/17/25 07/21/25 losartan 25 mg tablet 25 mg PO DAILY #90 tabs 04/16/25 07/21/25 atomoxetine 40 mg capsule 40 mg PO DAILY #30 caps 04/18/25 07/21/25 rivaroxaban 10 mg tablet 10 mg PO DAILY #90 tabs 04/19/25 07/21/25 estradiol 0.01% (0.1 mg/gram) 1 g vaginal DIRECTED #60 grams 07/10/25 07/21/25 vaginal cream guanfacine 1 mg tablet 3 mg PO DAILY 07/21/25 07/21/25 Previous Rx's ?Medication ?Instructions ?Recorded lorazepam 1 mg tablet 0.5 - 1 mg (0.5 - 1 x 1 mg) PO QHS 10/16/24 PRN insomnia #10 tabs trazodone 100 mg tablet 100 mg PO QHS #90 tabs 01/17/25 losartan 25 mg tablet 25 mg PO DAILY #90 tabs 04/16/25 atomoxetine 40 mg capsule 40 mg PO DAILY #30 caps 04/18/25 rivaroxaban 10 mg tablet 10 mg PO DAILY #90 tabs 04/19/25 estradiol 0.01% (0.1 mg/gram) 1 g vaginal DIRECTED #60 grams 07/10/25 vaginal cream Allergies Allergy/AdvReac Type Severity Reaction Status Date / Time erythromycin base AdvReac Severe vomiting Verified 07/21/25 15:19 General Stated Complaint: Nausea/Vomit/Diar HERMAN: 3 Exam Const General: cooperative and comfortable Nutritional Appearance: overweight Orientation: alert and oriented x3 HENMT Head: normal to inspection Ears: hearing grossly normal bilaterally General nose exam: external nose normal Face and sinus: normal facial exam and dry mucous membranes Mouth: oral mucosae normal Resp Effort & Inspection: normal respiratory effort and able to speak in complete sentences Auscultation: clear to auscultation bilaterally Cardio Rate: regular rate Rhythm: regular rhythm GI Palpation: soft, not firm, no guarding, no hernias, no masses and nontender Auscultation: normal bowel sounds Skin Other: Neuro General: patient alert, patient oriented x3, tone normal and moves all extremities Motor: muscle tone normal throughout and strength 5/5 throughout Sensory Exam: no sensory deficits noted Extrem Right lower extremity: hip/thigh Details: ecchymosis (w/ healing surgical incisions); no swelling, no crepitus, no deformity and no unusual warmth and lower leg Details: ecchymosis (w healing surgical incisions); no erythema, no tenderness, no localized swelling, no palpable cords, no abrasions, no crepitus, no foreign bodies, no deformity and no unusual warmth Course Vital Signs Vital signs: Vital Signs Temperature 36.6 C 07/21/25 15:14 Pulse 54 L 07/21/25 15:14 Respiratory Rate 18 07/21/25 15:14 Blood Pressure 168/110 H 07/21/25 15:14 Pulse Oximetry 100 07/21/25 15:14 Temperature 36.6 C 07/21/25 15:18 Temperature Source Oral 07/21/25 15:18 Pulse 54 L 07/21/25 15:18 Respiratory Rate 18 07/21/25 15:18 Blood Pressure 168/110 H 07/21/25 15:18 Blood Pressure Position Sitting 07/21/25 15:18 Pulse Oximetry 100 07/21/25 15:18 Oxygen Delivery Method Room Air 07/21/25 15:18 Oxygen Flow Rate 0 07/21/25 15:18 Pain Level 6 07/21/25 15:18 Comment pt reports right leg pain and headache 07/21/25 15:18 Medical Decision Making Ashely is a 50-year-old female who presents to the emergency department today for evaluation of nausea/vomiting accompanied by mild abdominal pain attributed to retching, lightheadedness, mild headache, sore throat, and mild cough. She reports that she developed some mild URI symptoms earlier this week, has had negative for flu and COVID, believes this is due to asthma. Had surgery for varicose veins on right leg on Tuesday. Was feeling fine until this morning, at 530 she woke up with intractable nausea/vomiting, has been unable to keep anything down. Recorded a one-time fever of 101.6 oral, no fever since then. Denies chills, body aches, vision changes, episodes of passing out, congestion/postnasal drip, chest pain, difficulty breathing/wheezing, change in bladder function, extremity weakness/numbness. She has not had a BM since procedure. Denies drainage onto her bandages, says that she has to change her bandages today. Varicose vein procedure performed at [facility]. Physical exam reassuring. Tacky mucous membranes. Easy work of breathing, lung sounds clear bilaterally. Normal heart sounds. Abdomen soft, nondistended, nontender to palpation with normoactive bowel sounds. Surgical sites to right leg appear to be healing well, no erythema/induration or purulent drainage noted. DDx includes but is not limited to: Viral illness, gastritis, electrolyte imbalance. Patient does not meet sepsis criteria. Low suspicion for surgical site infection, however blood cultures were drawn due to report of fever. No red flags concerning for neurovascular compromise requiring diagnostic imaging at this time/vascular studies. I independently interpreted the following tests: CBC notable for mild leukocytosis, white cell count 12.81. CRP/sed rate unremarkable. CMP reassuring. While in the emergency department Ashely received IV Toradol, Zofran, and fluids with full improvement of symptoms. She reports she is feeling much better at this time. Dressing change performed by Ketty ALLEN. Discussed case with , vascular surgery at [facility]. Reviewed patient presentation, labs, physical exam, and response to treatment. She is in agreement that this does not seem to be phlebitis/surgical infection, most likely a viral process from recent hospital procedure. She would like patient to follow-up tomorrow for duplex ultrasound as scheduled. Reviewed discharge instructions with patient. Will discharge home with 3 tablets of ODT Zofran. Educated on rehydration, importance of follow-up for duplex ultrasound, and red flags indicating need for return to emergency care. She voices agreement with plan of care. PFSH All Active Problems (Updated 07/21/25 @ 17:35 by Niya Mooney) Nausea & vomiting (Acute) Vaginal dryness (Acute) Recurrent UTI (Acute) Bacterial vaginosis (Acute) Urinary tract infection (Acute) Elevated blood pressure reading (Acute) High blood pressure determined by examination (Acute) Anxiety (Chronic) Staghorn calculus (Acute) Varicose veins of both lower extremities (Acute) Hematuria (Acute) Mild intermittent asthma (Acute) ADHD (Acute) Tension type headache (Acute) Generalized anxiety disorder (Acute) Obesity (Chronic) Mixed incontinence (Acute) IUD surveillance (Acute) Medical History Acute superficial venous thrombosis of lower extremity Surgical History History of back surgery Fx L2-L3 03/08/1998 Family History Father Alzheimer's dementia Dx early 50s Adopted Mother Alcohol use disorder Asthma Social History Smoking/Tobacco Use Status: Never Second Hand Exposure: Yes Smoking risk assessment performed?: Yes Alcohol Intake: former Drug use: Never Substance use type: does not use Counseling given: No Counseling provided: support program Adopted: No Caregiver/Support person: No Household members: children Housing: house Number of Children: 2 Communication Needs: None Education Level: college Details: Associates Degree Do you need help understanding health information?: Rarely 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 Sexually active: No Do you think of yourself as: straight/heterosexual Current gender identity: female What is your relationship status?: How often do you talk on the phone with friends or family?: three or more times per week How often do you get together with friends or relatives?: three or more times per week How often do you attend yazdanism or gnosticism services?: decline to answer Do you belong to any clubs or organized social groups?: yes Panel score (0-1 are the most socially isolated patients): 2 NHANES result reviewed/action taken: Yes What type of physical activity do you participate in: other Details: horseback riding Frequency: 3-4 times per week Katya/Mormonism: Hindu Seatbelt use: always Helmet use: Yes Helmet use: always Drive intox or ride w/intox minibus driver: No Firearms in home: No Do you feel safe at home: Yes Female Reproductive History Menstrual control method: progestin IUCD History History 2 Para 2 Hx # Term Pregnancies Multiple births Hx # Pregnancies Ectopic pregnancies AB induced Hx Number of Living Children AB spontaneous
[2025-07-21] MEDS: Ondansetron 4 MG/2 ML VIAL IVP (15:47)
[2025-07-21] MEDS: Lactated Ringers 1,000 ML 1000 ML IV (15:48)
[2025-07-21] MEDS: Ketorolac 15 MG/ML VIAL IVP (15:55)
[2025-07-21 15:58] LABS: Abs Immature Grans 0.20 10^3/uL (0.0-0.06); HCT 41.4 % (36.0-46.0); HGB 13.8 g/dL (11.2-15.7); MCH 29.5 pg (27.0-33.0); MCHC 33.3 % (32.0-36.0); MCV 89 fL (80-95); MPV 9.5 fL (8.0-11.0); RBC 4.68 10^6/uL (3.93-5.22); RDW 12.3 % (11.7-14.6); RDW-SD 40.2 fL; WBC 12.13 10^3/uL (4.4-10.8)
[2025-07-21 16:13] LABS: Immature Grans % 0.0 %
[2025-07-21 16:14] LABS: Platelet Count 287 10^3/uL (130-400); RBC Morphology Normal
[2025-07-21 16:32] LABS: Magnesium 1.8 mg/dL (1.6-2.6)
[2025-07-21 16:33] LABS: ALT 32 U/L (10-49); AST 20 U/L (<34); Albumin 4.1 g/dL (3.2-5.0); Alkaline Phosphatase 51 U/L (46-116); Anion Gap 8.5 mmol/L (3-11); BUN 19 mg/dL (9-23); Bilirubin, Total 0.4 mg/dL (0.2-1.2); CO2 28.5 mmol/L (20.0-31.0); Calcium 8.7 mg/dL (8.3-10.6); Chloride 105 mmol/L (98-107); Glucose 115 mg/dL (74-106); Potassium 4.0 mmol/L (3.5-5.1); Sodium 142 mmol/L (136-145); Total Protein 7.2 g/dL (5.7-8.2)
[2025-07-21 16:47] LABS: COVID-19 PCR Negative (Negative); RSV PCR Negative (Negative)
[2025-07-21 16:49] LABS: ESR 21 mm/hr (0-20)
[2025-07-21 16:59] LABS: C-Reactive Protein 0.51 mg/dL (<=0.50)
[2025-07-21] MEDS: Ondansetron O.D.T. 4 MG TABEF, 3 TABS/BTL PO (18:03)
== END 2025-07-21 18:13 | disposition home or self-care (01) ==
PROVIDERS: Emergency Provider Nurse Practitioner Family; PCP Family Medicine
DX: R11.2 Nausea with vomiting, unspecified (principal); R10.9 Unspecified abdominal pain
CPT/HCPCS: 99284 ×2; 96374; 96375; 80053; 85652; 87040; 87637; 96361; 83735; 85025; 86140; J1885; J2405